=== PATIENT | female | born 1945 | race Caucasian/White ===

== ENCOUNTER 2017-10-12 07:54 | Day surgery (SDC) | payer MEDICARE, OTHER ==
[~2017-10-12 07:54] MED LIST: AMLO10 PO; AMLO5; ASPI81CH PO; ASPI81EC PO; ATOR20 PO; ATOR40TA PO; BUME2 PO; Bactrim Ds Tab1 EACH PO; CEPH500 PO; CYCL10 PO; Cetirizine HCl10 MG PO; Cleocin HCl150 MG PO; FURO40 PO; GLIP10 PO; HYDACE5325 PO; HYDCHL25 PO; IMIPENEM-CILAS500 MG IV; INSDET100 SC; INSLIS75I SQ; INSULANPEN SC; INSULANPEN SQ; INVOKANA PO; INVOKANA300 MG PO; LETR2.5 PO; LOSA50 PO; LOSARTAN POTAS100 MG PO; Lasix40 MG PO; METF500C PO; METO100ER PO; METO2.5 PO; Norco 5-325 Ta1 EACH PO; Norvasc2.5 MG PO; Novolog100 UNIT/2 SC; OXYC5 PO; Omeprazole20 M1 PO; POTCHL10ER PO; SPIR25 PO; SPIR50 PO; SULTRIDS PO; Simvastatin20 MG PO; Toprol Xl50 MG PO; VANCO 1 GR1 GM/250 M IV; VANCOMYCIN750 MG/150 IV; Vibramycin100 MG PO; Zofran Odt4 MG SL
[2018-05-18] MEDS ORDERED: KETO10 PO (19:10)
[2018-08-03] MEDS ORDERED: AMLO10 PO (09:56)
[2018-08-06] MEDS ORDERED: ACET325 PO (16:33)
[2018-08-06] MEDS ORDERED: LEVO750 PO (16:38)
== END 2017-10-12 22:45 | disposition home or self-care (01) ==
LOC: WOUND 07:54
DX: E11.621 Type 2 diabetes mellitus with foot ulcer (principal); E11.21 Type 2 diabetes mellitus with diabetic nephropathy; I11.0 Hypertensive heart disease with heart failure; I50.22 Chronic systolic (congestive) heart failure; J44.9 Chronic obstructive pulmonary disease, unspecified; I87.2 Venous insufficiency (chronic) (peripheral); M46.36 Infection of intervertebral disc (pyogenic), lumbar region; K68.12 Psoas muscle abscess; E11.65 Type 2 diabetes mellitus with hyperglycemia; L97.509 Non-pressure chronic ulcer of other part of unspecified foot with unspecified severity
CPT/HCPCS: 73630; G0463

== ENCOUNTER 2018-10-12 20:46 | Inpatient (IN) | payer MEDICARE, OTHER ==
[~2018-10-12] VITALS: Ht 167.6 cm; Wt 101.4 kg
[~2018-10-12 20:46] MED LIST changes: +ACET325 PO; +KETO10 PO; +LEVO750 PO; +METO10 PO
[2018-10-12 21:50] LABS: BASOPHILS ABSOLUTE AUTO 0.01 K/mm3 (0.00-0.23); BASOPHILS PERCENT AUTO 0 % (0-2); EOSINOPHILS ABSOLUTE AUTO 0.03 K/mm3 (0.00-0.68); EOSINOPHILS PERCENT AUTO 0 % (0-6); Hematocrit 25.2 % (33.0-51.0); Hemoglobin 8.4 g/dL (11.5-16.0); IMMATURE GRAN ABSOLUTE AUTO 0.02 K/mm3 (0.00-0.10); IMMATURE GRAN PERCENT AUTO 0 % (0-1); LYMPHOCYTES ABSOLUTE AUTO 1.26 K/mm3 (0.84-5.20); LYMPHOCYTES PERCENT AUTO 16 % (21-46); MONOCYTES ABSOLUTE AUTO 0.62 K/mm3 (0.16-1.47); MONOCYTES PERCENT AUTO 8 % (4-13); Mean Corpuscular HGB 27.9 pg (26.0-34.0); Mean Corpuscular HGB Conc 33.3 g/dL (31.5-36.5); Mean Corpuscular Volume 84 fL (80-100); Mean Platelet Volume 11.1 fL (9.1-12.4); NEUTROPHILS ABSOLUTE AUTO 6.08 K/mm3 (1.96-9.15); NEUTROPHILS PERCENT AUTO 76 % (41-73); Platelet Count 235 K/mm3 (150-400); RDW Coefficient Variation 14.5 % (11.7-14.2); RDW Standard Deviation 44.2 fL (35.1-46.3); Red Blood Cell Count 3.01 M/mm3 (3.80-5.20); White Blood Cell Count 8.02 K/mm3 (4.00-11.30)
[2018-10-12 22:10] LABS: Albumin, Blood 2.1 g/dL (3.4-5.0); Albumin/Globulin Ratio 0.5 (0.8-1.8); Bilirubin, Total 0.6 mg/dL (0.1-1.0); Bun/Creatinine Ratio 20.2 (12.0-20.0); Calcium, Blood 7.6 mg/dL (8.5-10.1); Creatinine, Blood 2.47 mg/dL (0.40-1.00); Globulin, Blood 4.6 g/dL (2.2-4.0); Potassium, Blood 3.3 mmol/L (3.5-5.5); Total Protein, Blood 6.7 g/dL (6.4-8.2)
[2018-10-13 05:12] LABS: Hematocrit 26.4 % (33.0-51.0); Hemoglobin 8.5 g/dL (11.5-16.0); Mean Corpuscular HGB 27.7 pg (26.0-34.0); Mean Corpuscular HGB Conc 32.2 g/dL (31.5-36.5); Mean Corpuscular Volume 86 fL (80-100); Mean Platelet Volume 11.6 fL (9.1-12.4); Platelet Count 199 K/mm3 (150-400); RDW Coefficient Variation 14.5 % (11.7-14.2); RDW Standard Deviation 45.6 fL (35.1-46.3); Red Blood Cell Count 3.07 M/mm3 (3.80-5.20); White Blood Cell Count 5.05 K/mm3 (4.00-11.30)
[2018-10-13 05:34] LABS: Albumin, Blood 1.9 g/dL (3.4-5.0); Albumin/Globulin Ratio 0.5 (0.8-1.8); Bilirubin, Total 0.5 mg/dL (0.1-1.0); Bun/Creatinine Ratio 20.7 (12.0-20.0); Calcium, Blood 7.2 mg/dL (8.5-10.1); Creatinine, Blood 2.46 mg/dL (0.40-1.00); Globulin, Blood 4.1 g/dL (2.2-4.0); Potassium, Blood 3.2 mmol/L (3.5-5.5)
--- NOTE | 2018-10-13 06:01 | NUR ---
SHIFT SUMMARY PT ARRIVED TO FLOOR ROUGHLY AROUND 0215. AOX4, REPORTS SHE IS FORGETFUL @TIMES BUT ANSWERS ALL QUESTIONS APPROPRIATELY. PT DENIES SOB OR N/V. REPORTS DISCOMFORT/PAIN IN R/SIDE/BACK WHEN SHE COUGHS BECAUSE SHE FELL 0N 10/11/18. LLE IS RED W/+3 PITTING EDEMA, TENDER & WARM TO TOUCH. PT ALSO REPORTS SHE HAS A BONE SPUR ON BOTTOM OF L FOOT, NO DRAINAGE IS NOTED, IT IS OPEN & ROUGHLY THE SIZE OF A NICKEL & HAS A NON-ADHERENT DRESSING APPLIED. CALL LIGHT IS IN REACH & BED IS IN LOWEST POSITION.
[2018-10-13 09:01] LABS: Source, Urine Clean Catch
[2018-10-13 09:04] LABS: Bilirubin, Urine Neg (Neg); Blood, Urine 3+ (Neg); Glucose Qualitative, Urine 3+ (Neg); Ketones, Urine 2+ (Neg); Leukocyte Esterase, Urine Neg (Neg); Nitrite, Urine Neg (Neg); Protein, Urine 4+ (Neg); Specific Gravity, Urine 1.015 (1.003-1.022); Urobilinogen, Urine NORM (Normal)
[2018-10-13 09:08] LABS: Appearance, Urine Clear (Clear); Color, Urine Yellow (P-Yellow)
[2018-10-13 09:13] LABS: Squamous Epithelial Cells Rare /hpf (Few); White Blood Cells, Urine 0-2 /hpf (0-5)
[2018-10-13 09:14] LABS: Bacteria Mod /hpf; Granular Casts Rare /lpf (0)
--- NOTE | 2018-10-13 17:02 | NUR ---
SHIFT SUMMARY PT AXO PLEASANT AND COOPERATIVE WITH CARE. PT UP WITH SBA TO BATHROOM. BP ELEVATED, MEDICATED PER EMAR. HYDRALAZINE GIVEN AT 1526, SEE MAR. PICTURES OF LEG AND WOUND ON FOOT IN CHART. MEPILEX IN PLACE ON FOOT. UA SENT TO LAB, SEE RESULTS. BED IN LOW POSITION, CALL LIGHT WITHIN REACH.
[2018-10-14 05:00] LABS: BASOPHILS ABSOLUTE AUTO 0.02 K/mm3 (0.00-0.23); BASOPHILS PERCENT AUTO 0 % (0-2); EOSINOPHILS ABSOLUTE AUTO 0.09 K/mm3 (0.00-0.68); EOSINOPHILS PERCENT AUTO 2 % (0-6); Hematocrit 25.6 % (33.0-51.0); Hemoglobin 8.4 g/dL (11.5-16.0); IMMATURE GRAN ABSOLUTE AUTO 0.03 K/mm3 (0.00-0.10); IMMATURE GRAN PERCENT AUTO 1 % (0-1); LYMPHOCYTES ABSOLUTE AUTO 1.25 K/mm3 (0.84-5.20); LYMPHOCYTES PERCENT AUTO 22 % (21-46); MONOCYTES PERCENT AUTO 11 % (4-13); Mean Corpuscular HGB 27.5 pg (26.0-34.0); Mean Corpuscular HGB Conc 32.8 g/dL (31.5-36.5); Mean Corpuscular Volume 84 fL (80-100); Mean Platelet Volume 10.8 fL (9.1-12.4); NEUTROPHILS ABSOLUTE AUTO 3.64 K/mm3 (1.96-9.15); NEUTROPHILS PERCENT AUTO 65 % (41-73); Platelet Count 229 K/mm3 (150-400); RDW Coefficient Variation 14.4 % (11.7-14.2); RDW Standard Deviation 43.8 fL (35.1-46.3); Red Blood Cell Count 3.05 M/mm3 (3.80-5.20); White Blood Cell Count 5.63 K/mm3 (4.00-11.30)
[2018-10-14 05:18] LABS: Albumin, Blood 1.9 g/dL (3.4-5.0); Anion Gap 11 mmol/L (6-16); Blood Urea Nitrogen 47 mg/dL (8-24); Bun/Creatinine Ratio 19.8 (12.0-20.0); CO2, Blood 23 mmol/L (21-32); Calcium, Blood 7.5 mg/dL (8.5-10.1); Chloride, Blood 109 mmol/L (98-108); Creatinine, Blood 2.37 mg/dL (0.40-1.00); Glomerular Filtration Rate 21 (60-); Glucose, Blood 163 mg/dL (70-99); Phosphorus, Blood 3.8 mg/dL (2.5-4.9); Potassium, Blood 3.3 mmol/L (3.5-5.5); Sodium, Blood 143 mmol/L (136-145)
--- NOTE | 2018-10-14 05:30 | NUR ---
SHIFT SUMMARY PT SLEPT WELL T/O NIGHT. AOX4. DENIES N/V, SOB OR PAIN. LLE IS RED, TENDER & WARM TO TOUCH W/+3 PITTING EDEMA, REDNESS DOES APPEAR TO HAVE RECEDED SINCE YESTERDAY & IS NO LONGER TO KNEE. CHEM BG @HS WAS 249 & PT WAS COVERED W/INSULIN PER ORDERS. THIS AM BP WAS 183/81, 10MG HYDRALAZINE WAS GIVEN PER ORDERS & BP WENT DOWN TO 162/66. PT UP INDEPENDENTLY TO RESTROOM & DENIES ANY DIZZINESS W/AMBULATION. CALL LIGHT IN REACH & I WILL CONT. TO MONITOR PT UNTIL DAY SHIFT RN ASSUMES CARE.
--- NOTE | 2018-10-14 18:22 | NUR ---
SHIFT SUMMARY PT AXO, PLEASANT AND COOPERATIVE WITH CARE THOUGH PT STATES THAT SHE "FEELS OFF/ CRUMMY" TODAY. PT DENIED PAIN, SOB AND NV. IV ACCESS LOST, POWERGLIDE INSERTED THIS AFTERNOON, PATENT AND INFUSING AT THIS TIME. VSS. CELLULITIS AREA MARKED THIS SHIFT. NO OTHER CHANGES. BED IN LOW POSIITON, CALL LIGHT WITHIN REACH. PT UP TO BATHROOM INDEPENDENTLY. PT EDUCATED ABOUT FALL RISK.
[2018-10-15 05:14] LABS: BASOPHILS ABSOLUTE AUTO 0.02 K/mm3 (0.00-0.23); BASOPHILS PERCENT AUTO 0 % (0-2); EOSINOPHILS ABSOLUTE AUTO 0.07 K/mm3 (0.00-0.68); EOSINOPHILS PERCENT AUTO 1 % (0-6); Hematocrit 26.7 % (33.0-51.0); Hemoglobin 8.8 g/dL (11.5-16.0); IMMATURE GRAN ABSOLUTE AUTO 0.05 K/mm3 (0.00-0.10); IMMATURE GRAN PERCENT AUTO 1 % (0-1); LYMPHOCYTES ABSOLUTE AUTO 1.79 K/mm3 (0.84-5.20); LYMPHOCYTES PERCENT AUTO 29 % (21-46); MONOCYTES ABSOLUTE AUTO 0.64 K/mm3 (0.16-1.47); MONOCYTES PERCENT AUTO 11 % (4-13); Mean Corpuscular HGB 27.9 pg (26.0-34.0); Mean Corpuscular Volume 85 fL (80-100); Mean Platelet Volume 10.2 fL (9.1-12.4); NEUTROPHILS ABSOLUTE AUTO 3.54 K/mm3 (1.96-9.15); NEUTROPHILS PERCENT AUTO 58 % (41-73); Platelet Count 256 K/mm3 (150-400); RDW Coefficient Variation 14.3 % (11.7-14.2); RDW Standard Deviation 43.8 fL (35.1-46.3); Red Blood Cell Count 3.15 M/mm3 (3.80-5.20); White Blood Cell Count 6.11 K/mm3 (4.00-11.30)
[2018-10-15 06:12] LABS: Anion Gap 9 mmol/L (6-16); Blood Urea Nitrogen 45 mg/dL (8-24); CO2, Blood 24 mmol/L (21-32); Calcium, Blood 7.9 mg/dL (8.5-10.1); Chloride, Blood 110 mmol/L (98-108); Glucose, Blood 151 mg/dL (70-99); Phosphorus, Blood 3.7 mg/dL (2.5-4.9); Potassium, Blood 3.6 mmol/L (3.5-5.5); Sodium, Blood 143 mmol/L (136-145)
--- NOTE | 2018-10-15 06:42 | NUR ---
SHIFT SUMMARY PT REPORTS SHE SLEPT WELL LAST NIGHT. NO ACUTE CHANGES THIS SHIFT. AOX4. DENIES N/V, SOB, OR PAIN. LLE IS RED, +3 PITTING EDEMA, TENDER & WARM TO TOUCH. PT REPORTS THE SKIN FEELS "TIGHT," AROUND ANKLE. CALL LIGHT IS IN REACH & BED IS IN LOWEST POSITION.
--- NOTE | 2018-10-15 06:47 | NUR ---
BP THIS AM AROUND 0327 BP WAS 170/69, 20MG HYDRALAZINE WAS GIVEN PER ORDERS & BP WAS RECHECKED @0520 & WAS TRENDING DOWN @ 135/59.
[2018-10-15 06:54] LABS: Bun/Creatinine Ratio 19.3 (12.0-20.0); Creatinine, Blood 2.33 mg/dL (0.40-1.00); Glomerular Filtration Rate 22 (60-)
--- NOTE | 2018-10-15 19:24 | NUR ---
SHIFT SUMMARY: NO ACUTE CHANGES TO REPORT THIS SHIFT. PT AO; CALM AND COOPERATIVE WITH CARE. MEDICATED FOR HEADACHE PAIN PER EMAR. LEFT LE CELLULITIS; EXTENT MARKED ON SKIN; REDNESS DECREASING; IV ABX Q8. TELE D/C'd THIS SHIFT. HX R MASTECTOMY; NO BPs ON R ARM. SB ASSIST TO BATHROOM. REPORT GIVEN TO ONCOMING RN.
--- NOTE | 2018-10-15 22:47 | NUR ---
10/15/18 2245 VOIDED 325 ML AND BLADDER SCAN = 000.
[2018-10-16 05:28] LABS: BASOPHILS ABSOLUTE AUTO 0.03 K/mm3 (0.00-0.23); BASOPHILS PERCENT AUTO 1 % (0-2); EOSINOPHILS ABSOLUTE AUTO 0.13 K/mm3 (0.00-0.68); EOSINOPHILS PERCENT AUTO 2 % (0-6); Hematocrit 28.1 % (33.0-51.0); IMMATURE GRAN ABSOLUTE AUTO 0.09 K/mm3 (0.00-0.10); IMMATURE GRAN PERCENT AUTO 1 % (0-1); LYMPHOCYTES ABSOLUTE AUTO 2.05 K/mm3 (0.84-5.20); LYMPHOCYTES PERCENT AUTO 31 % (21-46); MONOCYTES ABSOLUTE AUTO 0.55 K/mm3 (0.16-1.47); MONOCYTES PERCENT AUTO 8 % (4-13); Mean Corpuscular HGB 27.7 pg (26.0-34.0); Mean Corpuscular Volume 87 fL (80-100); Mean Platelet Volume 10.4 fL (9.1-12.4); NEUTROPHILS ABSOLUTE AUTO 3.74 K/mm3 (1.96-9.15); NEUTROPHILS PERCENT AUTO 57 % (41-73); Platelet Count 312 K/mm3 (150-400); RDW Coefficient Variation 14.6 % (11.7-14.2); Red Blood Cell Count 3.25 M/mm3 (3.80-5.20); White Blood Cell Count 6.59 K/mm3 (4.00-11.30)
[2018-10-16 06:03] LABS: Albumin, Blood 2.1 g/dL (3.4-5.0); Anion Gap 11 mmol/L (6-16); Blood Urea Nitrogen 41 mg/dL (8-24); CO2, Blood 22 mmol/L (21-32); Calcium, Blood 7.6 mg/dL (8.5-10.1); Chloride, Blood 110 mmol/L (98-108); Creatinine, Blood 2.41 mg/dL (0.40-1.00); Glomerular Filtration Rate 21 (60-); Glucose, Blood 163 mg/dL (70-99); Magnesium, Blood 1.7 mg/dL (1.6-2.4); Phosphorus, Blood 4.5 mg/dL (2.5-4.9); Potassium, Blood 3.7 mmol/L (3.5-5.5); Sodium, Blood 143 mmol/L (136-145)
--- NOTE | 2018-10-16 06:41 | NUR ---
10/16/18 0630 vitals and labwork stable. cheerful aND STATES LEFT LEG LOOKS AND FEELS MUCH BETTER THIS AM.
[2018-10-16] MEDS ORDERED: AMLO5 PO (11:02)
[2018-10-16] MEDS ORDERED: INSULANPEN SC (11:06)
[2018-10-16] MEDS ORDERED: LOSA25 PO (11:08)
[2018-10-16] MEDS ORDERED: DOCU100 PO (11:18)
[2018-10-16] MEDS ORDERED: CLIN300 PO (11:18)
[2018-10-16] MEDS ORDERED: Acidophilus La100 GM PO (11:20)
[2018-10-16] MEDS ORDERED: Isosorbide Mono30 MG PO (11:21)
[2018-10-16] MEDS ORDERED: ONDA4ODT MM (11:22)
[2018-10-16] MEDS ORDERED: POTA10T PO (11:23)
[2018-10-16] MEDS ORDERED: LEVO750 PO (11:23)
[2018-10-16] MEDS ORDERED: ATOR40TA PO (11:50)
--- NOTE | 2018-10-16 16:26 | NUR ---
PATIENT DISCHARGE: PATIENT DISCHARGED TO HOME THIS SHIFT. MEDICATION RECONCILIATION COMPLETED; [facility] DISCHARGE EDUCATION COMPLETED WITH PATIENT. PATIENT TRANSPORTED TO EXIT BY [facility] STAFF WITH WHEELCHAIR AT 1545. PATIENT DEPARTED [facility] VIA PRIVATE AUTO.
== END 2018-10-16 15:44 | disposition home or self-care (01) | DRG 603 ==
LOC: ER 20:46 → MEDS 10-13
PROVIDERS: Family Medicine; Physician Assistant; ADMIT Internal Medicine
DX: L03.116 Cellulitis of left lower limb (principal); N18.4 Chronic kidney disease, stage 4 (severe); N39.0 Urinary tract infection, site not specified; Z85.3 Personal history of malignant neoplasm of breast; E78.5 Hyperlipidemia, unspecified; Z87.891 Personal history of nicotine dependence; Z79.4 Long term (current) use of insulin; E11.65 Type 2 diabetes mellitus with hyperglycemia; E87.6 Hypokalemia; J44.9 Chronic obstructive pulmonary disease, unspecified; Z68.37 Body mass index [BMI] 37.0-37.9, adult; I12.9 Hypertensive chronic kidney disease with stage 1 through stage 4 chronic kidney disease, or unspecified chronic kidney disease; M14.672 Charcot's joint, left ankle and foot; B96.20 Unspecified Escherichia coli [E. coli] as the cause of diseases classified elsewhere; D63.1 Anemia in chronic kidney disease; E11.22 Type 2 diabetes mellitus with diabetic chronic kidney disease; E87.70 Fluid overload, unspecified; E88.09 Other disorders of plasma-protein metabolism, not elsewhere classified; R80.9 Proteinuria, unspecified
CPT/HCPCS: 36415; 71046; 72170; 73600; 76770; 80053; 80069; 81001; 82550; 82947; 83605; 83735; 84484; 85025; 85027; 87077; 87086; 87186; 93005; 93010; 93971; 96365; 96366; 96375; 99284-25; 99285-25; C1751; J0360; J0881; J1200; J1650; J1815; J2270; J2405; J2765; J3480; J7030; J7050; P9612

== ENCOUNTER 2019-12-17 06:43 | Inpatient (IN) | payer MEDICARE, OTHER ==
[~2019-12-17] VITALS: Ht 170.2 cm; Wt 110.5 kg
[~2019-12-17 06:43] MED LIST changes: -ASPI81CH PO; +Acidophilus La100 GM PO; +Aspir 8181 MG PO; +CLIN300 PO; +DOCU100 PO; +Isosorbide Mono30 MG PO; +ONDA4ODT MM; +POTA10T PO
[2019-12-17 08:20] LABS: BASOPHILS ABSOLUTE AUTO 0.02 K/mm3 (0.00-0.23); BASOPHILS PERCENT AUTO 0 % (0-2); EOSINOPHILS ABSOLUTE AUTO 0.16 K/mm3 (0.00-0.68); EOSINOPHILS PERCENT AUTO 2 % (0-6); Hematocrit 27.9 % (33.0-51.0); Hemoglobin 8.9 g/dL (11.5-16.0); IMMATURE GRAN ABSOLUTE AUTO 0.03 K/mm3 (0.00-0.10); IMMATURE GRAN PERCENT AUTO 0 % (0-1); LYMPHOCYTES ABSOLUTE AUTO 1.45 K/mm3 (0.84-5.20); LYMPHOCYTES PERCENT AUTO 17 % (21-46); MONOCYTES ABSOLUTE AUTO 0.54 K/mm3 (0.16-1.47); MONOCYTES PERCENT AUTO 7 % (4-13); Mean Corpuscular HGB 28.2 pg (26.0-34.0); Mean Corpuscular HGB Conc 31.9 g/dL (31.5-36.5); Mean Corpuscular Volume 88 fL (80-100); Mean Platelet Volume 11.3 fL (9.1-12.4); NEUTROPHILS ABSOLUTE AUTO 6.14 K/mm3 (1.96-9.15); NEUTROPHILS PERCENT AUTO 74 % (41-73); Platelet Count 221 K/mm3 (150-400); RDW Coefficient Variation 13.5 % (11.7-14.2); RDW Standard Deviation 43.6 fL (35.1-46.3); Red Blood Cell Count 3.16 M/mm3 (3.80-5.20); White Blood Cell Count 8.34 K/mm3 (4.00-11.30)
[2019-12-17] MEDS ORDERED: LEVEMIR FL100 UNIT/1 SC (08:40)
[2019-12-17 08:41] LABS: Albumin, Blood 2.4 g/dL (3.4-5.0); Albumin/Globulin Ratio 0.6 (0.8-1.8); Bilirubin, Total 0.2 mg/dL (0.1-1.0); Calcium, Blood 7.6 mg/dL (8.5-10.1); Creatinine, Blood 3.57 mg/dL (0.40-1.00); Potassium, Blood 4.8 mmol/L (3.5-5.5); Total Protein, Blood 6.4 g/dL (6.4-8.2); Troponin I 0.054 ng/mL (0.000-0.040)
[2019-12-17 10:05] LABS: C-Reactive Protein, High Sens. 6.11 mg/L (0.000-3.000)
[2019-12-17 10:09] LABS: International Normalized Ratio 0.95; Prothrombin Time Results 10.2 Sec (9.7-11.5)
[2019-12-17 11:38] LABS: Adenovirus Not Detected (NOT DETECT); Bordetella pertussis Not Detected (NOT DETECT); Chlamydophila pneumoniae Not Detected (NOT DETECT); Coronavirus 229E Not Detected (NOT DETECT); Coronavirus HKU1 Not Detected (NOT DETECT); Coronavirus NL63 Not Detected (NOT DETECT); Coronavirus OC43 Not Detected (NOT DETECT); Human Metapneumovirus Not Detected (NOT DETECT); Human Rhinovirus/Enterovirus Not Detected (NOT DETECT); Influenza A/2009-H1 Not Detected (NOT DETECT); Influenza A/H1 Not Detected (NOT DETECT); Influenza A/H3 Not Detected (NOT DETECT); Influenza B Not Detected (NOT DETECT); Mycoplasma pneumoniae Not Detected (NOT DETECT); Parainfluenza Virus 1 Not Detected (NOT DETECT); Parainfluenza Virus 2 Not Detected (NOT DETECT); Parainfluenza Virus 3 Not Detected (NOT DETECT); Parainfluenza Virus 4 Not Detected (NOT DETECT); Respiratory Syncytial Virus Not Detected (NOT DETECT)
[2019-12-17] MEDS ORDERED: AMLODIPINE BES2.5 MG PO (12:45)
[2019-12-17] MEDS ORDERED: ATOR40TA PO (12:47)
[2019-12-17 13:19] LABS: Source, Urine Clean Catch
[2019-12-17 13:28] LABS: Bilirubin, Urine Neg (Neg); Blood, Urine 2+ (Neg); Glucose Qualitative, Urine 4+ (Neg); Ketones, Urine Neg (Neg); Leukocyte Esterase, Urine Neg (Neg); Nitrite, Urine Neg (Neg); Protein, Urine 4+ (Neg); Specific Gravity, Urine 1.015 (1.003-1.022); Urobilinogen, Urine NORM (Normal)
[2019-12-17 13:41] LABS: Appearance, Urine Clear (Clear); Color, Urine Pale Yellow (P-Yellow)
[2019-12-17 13:44] LABS: Bacteria Mod /hpf; Squamous Epithelial Cells Few /hpf (Few); White Blood Cells, Urine 0-2 /hpf (0-5)
--- NOTE | 2019-12-17 16:36 | NUR ---
SHE HAS BEEN ADMITTED TO 328 FROM THE E.R. SHE IS A&O AND AMBULATORY IN THE ROOM WITH SBA. SHE DOES NOT USE A WALKER. TELE IS NSR. NO CP. SHE HAD 1 EPISODE OF SOB RIGHT AFTER SHE ARRIVED FROM THE E.R. AND AMBULATED TO AND FROM THE BATHROOM. SHE WAS OBVIOUSLY ANXIOUS AT THE SAME TIME. BOTH SUBSIDED WITHIN 3 MINUTES. HER THUMB SALINE LOCK DC'D. IT WAS NOT PATENT. NEW PERIPHERAL IV STARTED WITH ULTRASOUND IN THE LFA. WE ARE NOT USING HER RT ARM FOR ANY NEEDLE STICKS OR BP'S. [facility] SALAZAR HAS A LARGE RED AREA SHE SAYS SHE HAS HAD FOR YEARS. SHE SAYS SHE ALSO HAS LYMPHEDEMA IN THAT LEG. KNEE TEDS ON BILATERALLY. WILL TAKE IN SCD'S LATER. 24HR URINE STARTED AT 1315 WHEN HER UA WAS COLLECTED. 2ND TROPONIN SLIGHTLY HIGHER THAN THE FIRST. ROUNDED. RENAL US DONE. TECH DID NOT MENTION ANY URINE IN THE BLADDER. NOW SHE IS HAVING HER ECHO DONE. SHE HAS HAD NO COMPLAINTS. HER CBG WAS 370. INSULIN GIVEN. SHE SAYS SHE TAKES HER LONG ACTING INSULIN TWICE A DAY. SHE UNDERSTANDS SHE IS ON A FLUID RESTRICTION.
--- NOTE | 2019-12-17 17:51 | NUR ---
Echocardiogram performed.
--- NOTE | 2019-12-17 18:38 | NUR ---
RT ANY REMOVED PER HER REQUEST BECAUSE OF THE CHRONIC SORE ON HER RT SALAZAR. SCD'S PUT ON BILATERALLY. SHE WILL LET US KNOW IF IT IS TOO UNCOMFORTABLE.
--- NOTE | 2019-12-17 23:14 | NUR ---
TROPONIN TRENDING UP INFORMED HOSPITALIST CHIRAG W @5374, THAT PT 2000 TROP WAS ELEVATED AT 0.144 FROM 0.115 AT 1500. BP @2000 WAS 222/93 & TELE WAS NSR W/HR 102 @TIME OF ELEVATED TROPONIN DRAW. PT DENIES CHEST PAIN, NAUSEA, DYSPNEA, DOES STATE SHE OCCASIONALLY FEELS CLAMMY. BP HAS SINCE DECREASED TO 144/83 W/HR IN 80'S. NO NEW ORDERS WHERE GIVEN. WCTM. CALL LIGHT IN REACH.
[2019-12-18 05:08] LABS: Hematocrit 25.2 % (33.0-51.0); Hemoglobin 7.9 g/dL (11.5-16.0); Mean Corpuscular HGB 27.5 pg (26.0-34.0); Mean Corpuscular HGB Conc 31.3 g/dL (31.5-36.5); Mean Corpuscular Volume 88 fL (80-100); Mean Platelet Volume 11.1 fL (9.1-12.4); Platelet Count 222 K/mm3 (150-400); RDW Coefficient Variation 13.7 % (11.7-14.2); RDW Standard Deviation 44.1 fL (35.1-46.3); Red Blood Cell Count 2.87 M/mm3 (3.80-5.20); White Blood Cell Count 6.32 K/mm3 (4.00-11.30)
[2019-12-18 05:38] LABS: Albumin, Blood 2.2 g/dL (3.4-5.0); Albumin/Globulin Ratio 0.6 (0.8-1.8); Bilirubin, Total 0.3 mg/dL (0.1-1.0); Bun/Creatinine Ratio 12.2 (12.0-20.0); Calcium, Blood 7.9 mg/dL (8.5-10.1); Creatinine, Blood 3.84 mg/dL (0.40-1.00); Globulin, Blood 3.7 g/dL (2.2-4.0); Magnesium, Blood 1.6 mg/dL (1.6-2.4); Phosphorus, Blood 4.8 mg/dL (2.5-4.9); Potassium, Blood 5.1 mmol/L (3.5-5.5); Total Protein, Blood 5.9 g/dL (6.4-8.2)
--- NOTE | 2019-12-18 07:57 | NUR ---
SHIFT SUMMARY AOX4. DENIES PAIN OR N/V. REPORTS ORTHOPNEA ALONG W/ DYSPNEA W/WALKING & ACTIVITY. DENIES DIZZINESS OR CHEST PALPATATIONS. REPORTS FEELING "CLAMMY". TELE RUNNING NSR HR 78. BP @0430 WAS 209/90- GAVE 10 IV HYDRALAZINE, RECHECKED BP @ 0530 IT WAS 194/87, CALLED DR WHITE. HE ORDERED A OT DOSE OF 10 IV LABETALOL, BP TO BE RECHECKED W/MORNING VS. NO NEW TROPONIN LABS WERE DRAWN OR ORDERED THIS AM, EVEN THOUGH LAST TROPONIN DRAW @2028 WAS THE HIGHEST @0.144. PT DENIES CHEST PAIN. CBG 261 @HS. CALL LIGHT IN REACH.
[2019-12-18 14:35] LABS: Protein, Urine Quantitative 466.6 mg/dL (0.0-11.9)
--- NOTE | 2019-12-18 14:53 | NUR ---
THE PATIENT HAS HAD AN UNEVENTFUL DAY. NO COMPLAINTS OF PAIN OR DISCOMFORT. VITALS STABLE THIS MORNING. 24HR URINE COLLECTION COMPLETED AND SENT TO THE LAB. THE PATIENT IS PLEASANT AND COOPERATIVE AND ASKS FOR STAFF ASSIST NEEDED. WILL CONTINUE TO MONITOR AND PROVIDE CARE NEEDED.
[2019-12-18 15:20] LABS: BASOPHILS ABSOLUTE AUTO 0.01 K/mm3 (0.00-0.23); BASOPHILS PERCENT AUTO 0 % (0-2); EOSINOPHILS ABSOLUTE AUTO 0.08 K/mm3 (0.00-0.68); EOSINOPHILS PERCENT AUTO 1 % (0-6); Hematocrit 26.5 % (33.0-51.0); Hemoglobin 8.3 g/dL (11.5-16.0); IMMATURE GRAN ABSOLUTE AUTO 0.02 K/mm3 (0.00-0.10); IMMATURE GRAN PERCENT AUTO 0 % (0-1); LYMPHOCYTES ABSOLUTE AUTO 1.64 K/mm3 (0.84-5.20); LYMPHOCYTES PERCENT AUTO 28 % (21-46); MONOCYTES ABSOLUTE AUTO 0.52 K/mm3 (0.16-1.47); MONOCYTES PERCENT AUTO 9 % (4-13); Mean Corpuscular HGB 27.3 pg (26.0-34.0); Mean Corpuscular HGB Conc 31.3 g/dL (31.5-36.5); Mean Corpuscular Volume 87 fL (80-100); Mean Platelet Volume 10.8 fL (9.1-12.4); NEUTROPHILS ABSOLUTE AUTO 3.52 K/mm3 (1.96-9.15); NEUTROPHILS PERCENT AUTO 61 % (41-73); Platelet Count 232 K/mm3 (150-400); RDW Coefficient Variation 13.7 % (11.7-14.2); RDW Standard Deviation 43.4 fL (35.1-46.3); Red Blood Cell Count 3.04 M/mm3 (3.80-5.20); White Blood Cell Count 5.79 K/mm3 (4.00-11.30)
--- NOTE | 2019-12-18 15:54 | NUR ---
DR COUGHLIN NOTIFIED OF PATIENTS BP OF 251/100. ORDERS GIVEN TO ADMINISTER 20MG IV HYDRALAZINE NOW. MEDICATION ADMINISTERED ORDERED. WILL RECHECK BP AND REPORT BACK TO .
--- NOTE | 2019-12-19 04:19 | NUR ---
SUMMARY NO ISSUES NOTED. PT HAS SLEPT OFF AND ON. PT CURRENTLY AWAKE AND HAVING AM LABS DRAWN. CALL LIGHT IN REACH. TM
[2019-12-19 04:42] LABS: BASOPHILS ABSOLUTE AUTO 0.03 K/mm3 (0.00-0.23); BASOPHILS PERCENT AUTO 0 % (0-2); EOSINOPHILS ABSOLUTE AUTO 0.13 K/mm3 (0.00-0.68); EOSINOPHILS PERCENT AUTO 2 % (0-6); Hematocrit 27.7 % (33.0-51.0); Hemoglobin 8.9 g/dL (11.5-16.0); IMMATURE GRAN ABSOLUTE AUTO 0.02 K/mm3 (0.00-0.10); IMMATURE GRAN PERCENT AUTO 0 % (0-1); LYMPHOCYTES ABSOLUTE AUTO 1.53 K/mm3 (0.84-5.20); LYMPHOCYTES PERCENT AUTO 23 % (21-46); MONOCYTES ABSOLUTE AUTO 0.53 K/mm3 (0.16-1.47); MONOCYTES PERCENT AUTO 8 % (4-13); Mean Corpuscular HGB 27.6 pg (26.0-34.0); Mean Corpuscular HGB Conc 32.1 g/dL (31.5-36.5); Mean Corpuscular Volume 86 fL (80-100); Mean Platelet Volume 10.7 fL (9.1-12.4); NEUTROPHILS ABSOLUTE AUTO 4.46 K/mm3 (1.96-9.15); NEUTROPHILS PERCENT AUTO 67 % (41-73); Platelet Count 221 K/mm3 (150-400); RDW Coefficient Variation 14.2 % (11.7-14.2); RDW Standard Deviation 44.9 fL (35.1-46.3); Red Blood Cell Count 3.22 M/mm3 (3.80-5.20)
[2019-12-19 05:01] LABS: Albumin, Blood 2.4 g/dL (3.4-5.0); Anion Gap 9 mmol/L (6-16); Blood Urea Nitrogen 50 mg/dL (8-24); Bun/Creatinine Ratio 10.7 (12.0-20.0); CO2, Blood 22 mmol/L (21-32); Calcium, Blood 7.8 mg/dL (8.5-10.1); Chloride, Blood 109 mmol/L (98-108); Creatinine, Blood 4.67 mg/dL (0.40-1.00); Glomerular Filtration Rate 10 (60-); Glucose, Blood 298 mg/dL (70-99); Magnesium, Blood 1.6 mg/dL (1.6-2.4); Phosphorus, Blood 5.5 mg/dL (2.5-4.9); Potassium, Blood 4.6 mmol/L (3.5-5.5); Sodium, Blood 140 mmol/L (136-145)
--- NOTE | 2019-12-19 08:07 | NUR ---
A+O, calllight in reach, saline locked/flushed, took medications as prescribed, discussed diabetes as well as all medications and fluid restrictions, bed low, rm air, denies pain, strong pulse, profusion, movement in all extremities, porter luggage even, perrl, abdmn soft nontender, bt+4q, ls dim in base, hrr, denies pain, discussed edema, will continue to nonitor and treat
--- NOTE | 2019-12-19 18:13 | NUR ---
Initial spiritual care note: Karina is active in her Denominational practice and finds strength and peace from it. She lives with her dtr and grandkids. She feels well-supported and cared-for. No fears or worries. She has a mercedes, hopeful demeanor and was appreciative of spiritual affirmation. She tells me she has heath in Dr. William to provide healing to her kidneys. I will remain available.
[2019-12-19 18:19] LABS: Albumin, Blood 2.6 g/dL (3.4-5.0); Anion Gap 8 mmol/L (6-16); Blood Urea Nitrogen 54 mg/dL (8-24); Bun/Creatinine Ratio 11.3 (12.0-20.0); CO2, Blood 22 mmol/L (21-32); Calcium, Blood 8.1 mg/dL (8.5-10.1); Chloride, Blood 109 mmol/L (98-108); Creatinine, Blood 4.77 mg/dL (0.40-1.00); Glomerular Filtration Rate 10 (60-); Glucose, Blood 216 mg/dL (70-99); Phosphorus, Blood 5.5 mg/dL (2.5-4.9); Potassium, Blood 4.5 mmol/L (3.5-5.5); Sodium, Blood 139 mmol/L (136-145)
--- NOTE | 2019-12-20 03:56 | NUR ---
SUMMARY PT HAD SOME CX DISCOMFORT THAT SHE DESCRIBED "DEEP ITCHING" IN HER CX. ECG WAS PERFORMED AND DR HAYES NOTIFIED. PROVIDER STATED HE WAS NOT CONCERNED AND TO CONTINUE TO MONITOR. PT STATES SHE HAS SOME ANXIETY AND TAKES A XANAX THAT HELPS. DR KRISHNA CALLED AND XANAX WAS ORDERED. PT HAS REPORTED NOT HAVING SX'S ANY LONGER. PT STATES SHE HAS BEEN ANXIOUS ABOUT POSSIBLY STARTING DIALYSIS. PT CURRENTLY SLEEPING AND BREATHING EASY. CALL LIGHT IN REACH. [facility].
[2019-12-20 04:59] LABS: BASOPHILS ABSOLUTE AUTO 0.02 K/mm3 (0.00-0.23); BASOPHILS PERCENT AUTO 0 % (0-2); EOSINOPHILS ABSOLUTE AUTO 0.17 K/mm3 (0.00-0.68); EOSINOPHILS PERCENT AUTO 3 % (0-6); Hematocrit 26.5 % (33.0-51.0); Hemoglobin 8.4 g/dL (11.5-16.0); IMMATURE GRAN ABSOLUTE AUTO 0.03 K/mm3 (0.00-0.10); IMMATURE GRAN PERCENT AUTO 1 % (0-1); LYMPHOCYTES ABSOLUTE AUTO 1.98 K/mm3 (0.84-5.20); LYMPHOCYTES PERCENT AUTO 32 % (21-46); MONOCYTES ABSOLUTE AUTO 0.56 K/mm3 (0.16-1.47); MONOCYTES PERCENT AUTO 9 % (4-13); Mean Corpuscular HGB 27.5 pg (26.0-34.0); Mean Corpuscular HGB Conc 31.7 g/dL (31.5-36.5); Mean Corpuscular Volume 87 fL (80-100); Mean Platelet Volume 10.9 fL (9.1-12.4); NEUTROPHILS ABSOLUTE AUTO 3.49 K/mm3 (1.96-9.15); NEUTROPHILS PERCENT AUTO 56 % (41-73); Platelet Count 212 K/mm3 (150-400); RDW Coefficient Variation 14.1 % (11.7-14.2); RDW Standard Deviation 44.7 fL (35.1-46.3); Red Blood Cell Count 3.05 M/mm3 (3.80-5.20); White Blood Cell Count 6.25 K/mm3 (4.00-11.30)
[2019-12-20 05:31] LABS: Albumin, Blood 2.3 g/dL (3.4-5.0); Anion Gap 9 mmol/L (6-16); Blood Urea Nitrogen 55 mg/dL (8-24); Bun/Creatinine Ratio 11.1 (12.0-20.0); CO2, Blood 22 mmol/L (21-32); Calcium, Blood 7.8 mg/dL (8.5-10.1); Chloride, Blood 110 mmol/L (98-108); Creatinine, Blood 4.96 mg/dL (0.40-1.00); Glomerular Filtration Rate 9 (60-); Glucose, Blood 149 mg/dL (70-99); Magnesium, Blood 1.7 mg/dL (1.6-2.4); Phosphorus, Blood 5.7 mg/dL (2.5-4.9); Potassium, Blood 4.4 mmol/L (3.5-5.5); Sodium, Blood 141 mmol/L (136-145)
--- NOTE | 2019-12-20 08:08 | NUR ---
REPORT RECEIVED FROM NOC SHIFT, A+O, call light in reach, bed low, npo, took medication as prescribed held lantus because NPO, will recheck cbg mid shift as well as check in frequently to see if low cbg, ready for procedures, close monitoring of i/o, only one leg SKDS due to pt request
[2019-12-20 12:07] LABS: M-SPIKE, % Not Observed % (Not Observed); PROTEIN,TOTAL,URINE 523.5 mg/dL (Not Estab.)
--- NOTE | 2019-12-20 16:04 | NUR ---
NO [address] LEAD MONITOR NEEDED PER DR GRIMES
--- NOTE | 2019-12-20 19:17 | NUR ---
noc shift report given, will give her med for high bp, call light in reach, bed in low position, sba to bathroom, bed in low position, cath site looking good (CDI), sleepy, ate a snack states she is feeling great and looking forward to dialysis tomorrow
--- NOTE | 2019-12-21 04:17 | NUR ---
SHIFT SUMMARY ASSUMED CARE OF PT AT 1900. PT IS A/O X4, STATES SHE HAS N/T IN HER EXTREMITIES DUE TO CHEMOTHERAPY. HEART SOUNDS REGULAR, LUNG SOUNDS CLEAR BUT DIMINISHED AT THE BASES, DENIES SOB/CP AT THIS TIME. PT USES THE RESTROOM INDEPENDENTLY. SWELLING OF HER BLE +3, PT STATES THAT THE SWELLING HAS GOTTEN BETTER. PT STATES THAT SHE FEELS GREAT AND IS READY FOR DIALYSIS TOMORROW. PT BP WAS IN THE 200 SYSTOLIC, DAYSHIFT NURSE ADMINISTERED PRN MEDICATIONS, BP DECREASED TO 150S SYTOLIC. NO ACUTE EVENTS OVER NIGHT. PT SLEPT MOST OF THE NIGHT. CALL LIGHT IN REACH, BED IN LOWEST POSTION, WILL CONTINUE TO MONITOR UNTIL DAYSHIFT NURSE ARRIVES.
[2019-12-21 04:45] LABS: Hematocrit 28.6 % (33.0-51.0); Hemoglobin 9.1 g/dL (11.5-16.0)
[2019-12-21 05:15] LABS: Albumin, Blood 2.4 g/dL (3.4-5.0); Anion Gap 10 mmol/L (6-16); Blood Urea Nitrogen 57 mg/dL (8-24); Bun/Creatinine Ratio 11.5 (12.0-20.0); CO2, Blood 22 mmol/L (21-32); Chloride, Blood 110 mmol/L (98-108); Creatinine, Blood 4.94 mg/dL (0.40-1.00); Glomerular Filtration Rate 9 (60-); Glucose, Blood 164 mg/dL (70-99); Magnesium, Blood 1.8 mg/dL (1.6-2.4); Phosphorus, Blood 5.7 mg/dL (2.5-4.9); Potassium, Blood 4.4 mmol/L (3.5-5.5); Sodium, Blood 142 mmol/L (136-145)
--- NOTE | 2019-12-21 16:55 | NUR ---
SHIFT SUMMARY PT AXO, PLEASANT AND COOPERATIVE WITH CARE. PT HAD DIALYSIS THIS SHIFT. HTN NOTED WITH AM VS, 182/75, MEDICATED PER EMAR WITH MORNING MEDS. BP IMPROVED SINCE DIALYSIS. VSS WNL AT THIS TIME. UP WITH SBA TO BATHROOM. PT HAS HAD 720 ML IN SO FAR. FLUID RESTRICTION ADDED TO DIET ORDER. IV PATENT AND SALINE LOCKED. PERMICATH SITE WNL. BED IN LOW POSITION, CALL LIGHT WITHIN REACH.
--- NOTE | 2019-12-22 03:20 | NUR ---
SHIFT SUMMARY ASSUMED CARE OF PT AT 1900. PT IS A/OX4, STATES SHE HUTCHINS N/T IN HER EXTREMITIES DUE TO CHEMO THREAMENTS. HEART SOUNDS REGULAR, TELE SHOWS SINUS @ 76, DENIES CP AT THIS TIME. LUNG SOUNDS DIMINISHED AT THE BASES, DENIES SOB AT THIS TIME, PT STATES THAT THIS ISSUE IS RESOLVED TO HER. DIALYSIS PORT IS C/D/I WITH NEW DRESSING, NO S/SX OF INFECTION. PT STATES THAT HER SWELLING IN HER EXTRMITIES IS GETTING BETTER. PT IS INDEPENDENT IN HER ROOM TO THE BATHROOM WITH FWW. AT AROUND 0315 PT STATED THAT SHE FELT LIKE SHE WAS GETTING A UTI, SHE STATES THAT IT CORREA IN HER URETHRA AND FEELS IF SHE HAS TO PEE MORE. THIS MADE THE PT TEARFUL BECAUSE SHE WAS HIPEING SHE WAS GETTING BETTER AND SHE COULD GO HOME SOON. AWAITING SAMPLE FROM PT. PT ALSO C/O HEADACHE, MEDICATED PER EMAR. PT SLEPT MOST OF THE NIGHT EXCEPT FOR SAID EVENT. CALL LIGHT IN REACH, BED IN LOWEST POSTION, WILL CONTINUE TO MONITOR UNTIL DAYSHIFT NURSE ARRIVES.
[2019-12-22 04:56] LABS: Hematocrit 28.3 % (33.0-51.0); Hemoglobin 8.9 g/dL (11.5-16.0)
[2019-12-22 05:20] LABS: Albumin, Blood 2.5 g/dL (3.4-5.0); Anion Gap 9 mmol/L (6-16); Blood Urea Nitrogen 46 mg/dL (8-24); Bun/Creatinine Ratio 10.2 (12.0-20.0); CO2, Blood 25 mmol/L (21-32); Calcium, Blood 7.6 mg/dL (8.5-10.1); Chloride, Blood 105 mmol/L (98-108); Glomerular Filtration Rate 10 (60-); Glucose, Blood 299 mg/dL (70-99); Magnesium, Blood 1.8 mg/dL (1.6-2.4); Phosphorus, Blood 4.6 mg/dL (2.5-4.9); Potassium, Blood 4.3 mmol/L (3.5-5.5); Sodium, Blood 139 mmol/L (136-145)
[2019-12-22 06:07] LABS: HBSAG SCREEN Negative (Negative); HEP A AB, IGM Negative (Negative); HEP B CORE AB, IGM Negative (Negative); HEP C VIRUS AB 0.1 (0.0-0.9)
--- NOTE | 2019-12-22 16:52 | NUR ---
SHIFT SUMMARY PT AXO, PLEASANT AND COOPERATIVE WITH CARE. PT HAD DIALYSIS THIS SHIFT. PT DENIED DYSURIA THIS SHIFT. PT EDUCATED ABOUT NEEDED TO COLLECT URINE SAMPLE, PT AGREES AND AWAITING COLLECTION AT THIS TIME. PT COMPLAINED OF ITCHING DURING DIALYSIS, NEW ORDER INITIATED THEN WHEN NURSE WENT TO MEDICATE PATIENT, THE ITCHING WAS GONE. HTN NOTED THIS SHIFT. MEDICATED PER EMAR FOR HTN AT 1600, BISQUE WARE DIPPER REEVALUATING BP AT THIS TIME. SWELLING IN LEGS IMPROVING. PT MEDICATED FOR H/A PER EMAR. NO OTHER CHANGES THIS SHIFT. BED IN LOW POSITION, CALL LIGHT WITHIN REACH.
[2019-12-22 21:59] LABS: Source, Urine Clean Catch
[2019-12-22 22:02] LABS: Bilirubin, Urine Neg (Neg); Blood, Urine 1+ (Neg); Glucose Qualitative, Urine 3+ (Neg); Ketones, Urine 1+ (Neg); Leukocyte Esterase, Urine Neg (Neg); Nitrite, Urine Neg (Neg); Protein, Urine 4+ (Neg); Urobilinogen, Urine NORM (Normal)
[2019-12-22 22:03] LABS: Appearance, Urine Clear (Clear); Color, Urine Yellow (P-Yellow)
[2019-12-22 22:08] LABS: Bacteria Many /hpf; Hyaline Casts 0-2 /lpf (0-2); Red Blood Cells, Urine 0-2 /hpf (0-2); Squamous Epithelial Cells Few /hpf (Few)
--- NOTE | 2019-12-23 04:24 | NUR ---
SHIFT SUMMARY PT IS A/O X4. REPOSITIONS SELF IN BED AND HAS BEEN ASSISTED PRN. PT IS IND. IN ROOM WITH OCCASIONAL STANDBY ASSIST PRN. PT TOLERATING PO INTAKE AND COMPLIANT WITH FLUID RESTRICTIONS. NO ACUTE CHANGES OVERNIGHT. ASSISTED WITH ADL'S PRN.
[2019-12-23 05:15] LABS: Hematocrit 29.2 % (33.0-51.0); Hemoglobin 9.1 g/dL (11.5-16.0)
[2019-12-23 05:34] LABS: Albumin, Blood 2.6 g/dL (3.4-5.0); Anion Gap 8 mmol/L (6-16); Blood Urea Nitrogen 30 mg/dL (8-24); Bun/Creatinine Ratio 8.1 (12.0-20.0); CO2, Blood 28 mmol/L (21-32); Calcium, Blood 8.3 mg/dL (8.5-10.1); Chloride, Blood 104 mmol/L (98-108); Creatinine, Blood 3.72 mg/dL (0.40-1.00); Glomerular Filtration Rate 13 (60-); Glucose, Blood 166 mg/dL (70-99); Magnesium, Blood 1.9 mg/dL (1.6-2.4); Potassium, Blood 3.6 mmol/L (3.5-5.5); Sodium, Blood 140 mmol/L (136-145)
--- NOTE | 2019-12-23 05:47 | NUR ---
DR. HOLLY HERE TO SEE PT. REPORTS PT WILL HAVE DILAYSIS TODAY.
[2019-12-23 08:07] LABS: ANTIGLOMERULAR BM AB 2 units (0-20)
[2019-12-23 15:08] LABS: A/G RATIO 0.9 (0.7-1.7); ALBUMIN 2.4 g/dL (2.9-4.4); ALPHA-1-GLOBULIN 0.3 g/dL (0.0-0.4); ALPHA-2-GLOBULIN 0.9 g/dL (0.4-1.0); BETA GLOBULIN 0.8 g/dL (0.7-1.3); GAMMA GLOBULIN 0.8 g/dL (0.4-1.8); GLOBULIN, TOTAL 2.8 g/dL (2.2-3.9); IMMUNOGLOBULIN A, QN, SERUM 279 mg/dL (64-422); IMMUNOGLOBULIN G, QN, SERUM 709 mg/dL (586-1602); IMMUNOGLOBULIN M, QN, SERUM 119 mg/dL (26-217); M-SPIKE Not Observed g/dL (Not Observed); PROTEIN, TOTAL, SERUM 5.2 g/dL (6.0-8.5)
--- NOTE | 2019-12-23 18:25 | NUR ---
DISCHARGE SUMMARY PT DISCHARGED TO HOME. PT LEFT HOME PRIOR TO THIS NOTE. IV DC'D BELONGINGS RETURNED. PT HAD DIALYSIS THIS SHIFT. COMPLAINED THIS MORNING ABOUT "FEELING CRUMMY" BUT COULDNT ELABORATE ON EXACTLY HOW SHE WAS FEELING.EAGER TO BE DISCHARGED HOME. PT LEFT ROOM WITH VACCINATOR ESCORT PRIOR TO THIS NOTE. PT AGREES TOFOLLOW UP WITH DR. HOLLY AND [facility] BUT STATES THAT SHE WILL NOT FOLLOW UP WITH PCP AT THIS TIME BECAUSE OF THE COVID PANDEMIC. ALL DISCHARGE INSTRUCTIONS DISCUSSED, ALL QUESTIONS ANSWERED.
[2019-12-24 13:09] LABS: ANA DIRECT Negative (Negative); ANTIMYELOPEROXIDASE (MPO) ABS <9.0 U/mL (0.0-9.0); ANTIPROTEINASE 3 (PR-3) ABS <3.5 U/mL (0.0-3.5); ATYPICAL PANCA <1:20 titer (Neg:<1:20); CYTOPLASMIC (C-ANCA) <1:20 titer (Neg:<1:20); PERINUCLEAR (P-ANCA) <1:20 titer (Neg:<1:20)
== END 2019-12-23 18:10 | disposition home or self-care (01) | DRG 673 ==
LOC: ER 06:43 → MEDS 06:54 → ER 06:54 → MEDS 06:54
PROVIDERS: Emergency Medicine; Family Medicine; Internal Medicine Nephrology; Nurse Practitioner Acute Care; ADMIT Family Medicine
PROC: 02HV33Z Insertion of Infusion Device into Superior Vena Cava, Percutaneous Approach (ICD-10-PCS; principal; 2019-12-19)
PROC: 0JH63XZ Insertion of Tunneled Vascular Access Device into Chest Subcutaneous Tissue and Fascia, Percutaneous Approach (ICD-10-PCS; 2019-12-20)
PROC: B518ZZA Fluoroscopy of Superior Vena Cava, Guidance (ICD-10-PCS; 2019-12-20)
PROC: 5A1D70Z Performance of Urinary Filtration, Intermittent, Less than 6 Hours Per Day (ICD-10-PCS; 2019-12-20)
DX: N17.9 Acute kidney failure, unspecified (principal); J18.9 Pneumonia, unspecified organism; I13.0 Hypertensive heart and chronic kidney disease with heart failure and stage 1 through stage 4 chronic kidney disease, or unspecified chronic kidney disease; J44.0 Chronic obstructive pulmonary disease with (acute) lower respiratory infection; I50.32 Chronic diastolic (congestive) heart failure; E11.22 Type 2 diabetes mellitus with diabetic chronic kidney disease; N18.4 Chronic kidney disease, stage 4 (severe); Z99.2 Dependence on renal dialysis; Z79.4 Long term (current) use of insulin; E66.01 Morbid (severe) obesity due to excess calories; D63.1 Anemia in chronic kidney disease; K21.9 Gastro-esophageal reflux disease without esophagitis; N25.81 Secondary hyperparathyroidism of renal origin; N17.0 Acute kidney failure with tubular necrosis; Z85.3 Personal history of malignant neoplasm of breast; Z87.891 Personal history of nicotine dependence; Z66 Do not resuscitate; R21 Rash and other nonspecific skin eruption; E11.65 Type 2 diabetes mellitus with hyperglycemia; E83.39 Other disorders of phosphorus metabolism; Z68.37 Body mass index [BMI] 37.0-37.9, adult
CPT/HCPCS: 0099U; 36415; 36430; 71045; 76770; 77001; 80053; 80069; 80074; 81001; 81050; 82728; 82784; 82947; 83516; 83520; 83605; 83615; 83735; 83880; 84100; 84145; 84156; 84165; 84166; 84484; 85014; 85018; 85025; 85027; 85610; 85730; 86038; 86141; 86256; 86317; 86334; 86335; 86850; 86900; 86901; 86923; 87040; 87086; 93005; 93010; 93306; 93356; 96365; 96366; 96372; 96375; 96376; 99285-25; A9270; A9270-GY; C1750; G0378; J0360; J0881; J1644; J1815; J1940; J1956; J2250; J2704; J3010; J7030; J7050; P9016; U0002

== ENCOUNTER 2020-01-23 12:35 | Day surgery (SDC) | payer MEDICARE, OTHER ==
[~2020-01-23] VITALS: Ht 170.2 cm; Wt 101.4 kg
[~2020-01-23 12:35] MED LIST changes: +AMLODIPINE BES2.5 MG PO; +LEVEMIR FL100 UNIT/1 SC
--- NOTE | 2020-01-23 15:39 | NUR ---
PT BACK TO RECOVERY ROOM POST PROCEDURE. AWAKE, ALERT, AND DENIES ANY PAIN OR DISCOMFORT. VSS. PERM CATH IN PLACE IN RIGHT CHEST WALL. JUGULAR SITE WITH CLOTH DOT DRESSING IN PLACE. SLIGHT SWELLING, PT DENIES ANY PAIN OR TENDERNESS IN THE AREA.
--- NOTE | 2020-01-23 16:40 | NUR ---
IV DC'D, CATH INTACT. PT VERBALIZED UNDERSTANDING OF DISCHARGE INSTRUCTIONS AND FOLLOW UP INFO. RIGHT JUGULAR AND CHEST PERM CATH SITES CLEAN AND DRY. NO BLEEDING, BRUISING, OR TENDERNESS TO THE AREA. PT OUT TO CAR VIA WHEELCHAIR, GRANDSON TO GIVE PT A RIDE HOME.
== END 2020-01-23 23:49 | disposition home or self-care (01) ==
LOC: MHTC 12:35
DX: Z45.2 Encounter for adjustment and management of vascular access device (principal); E11.22 Type 2 diabetes mellitus with diabetic chronic kidney disease; I12.0 Hypertensive chronic kidney disease with stage 5 chronic kidney disease or end stage renal disease; N18.6 End stage renal disease; E66.9 Obesity, unspecified; J44.9 Chronic obstructive pulmonary disease, unspecified; Z87.891 Personal history of nicotine dependence; Z88.0 Allergy status to penicillin; Z88.2 Allergy status to sulfonamides; Z88.8 Allergy status to other drugs, medicaments and biological substances; Z91.041 Radiographic dye allergy status; Z79.82 Long term (current) use of aspirin; Z79.4 Long term (current) use of insulin; Z79.899 Other long term (current) drug therapy
CPT/HCPCS: 36558; 36589; 76937; 99152; 99153; C1750; C1769; C1894; J1644; J2250; J3010; J7040

== ENCOUNTER → 2020-02-23 | Outpatient (CLI) | payer MEDICARE, OTHER ==
[2020-02-24 10:07] LABS: ABBOTT SARS COV-2 IGG AB Negative (Negative)
[2020-02-24 13:08] LABS: SARS COV-2 IGM AB Negative (Negative)
== END | disposition home or self-care (01) ==
LOC: LAB 09:30 → LAB SHORT 09:30
PROVIDERS: Nurse Practitioner Family
DX: Z01.84 Encounter for antibody response examination (principal)
CPT/HCPCS: 86769

== ENCOUNTER 2020-04-23 10:10 | Observation (INO) | payer MEDICARE, OTHER ==
[~2020-04-23] VITALS: Ht 170.2 cm; Wt 102.7 kg
[~2020-04-23 10:10] MED LIST changes: -LEVEMIR FL100 UNIT/1 SC; +LEVEMIR FL100 UNIT/2 SC
[2020-04-23] MEDS ORDERED: CLON.1 PO (10:28)
[2020-04-23 10:41] LABS: BASOPHILS ABSOLUTE AUTO 0.02 K/mm3 (0.00-0.23); BASOPHILS PERCENT AUTO 0 % (0-2); EOSINOPHILS ABSOLUTE AUTO 0.07 K/mm3 (0.00-0.68); EOSINOPHILS PERCENT AUTO 1 % (0-6); Hematocrit 35.6 % (33.0-51.0); Hemoglobin 11.5 g/dL (11.5-16.0); IMMATURE GRAN ABSOLUTE AUTO 0.01 K/mm3 (0.00-0.10); IMMATURE GRAN PERCENT AUTO 0 % (0-1); LYMPHOCYTES ABSOLUTE AUTO 1.41 K/mm3 (0.84-5.20); LYMPHOCYTES PERCENT AUTO 23 % (21-46); MONOCYTES ABSOLUTE AUTO 0.51 K/mm3 (0.16-1.47); MONOCYTES PERCENT AUTO 8 % (4-13); Mean Corpuscular HGB 30.3 pg (26.0-34.0); Mean Corpuscular HGB Conc 32.3 g/dL (31.5-36.5); Mean Corpuscular Volume 94 fL (80-100); Mean Platelet Volume 10.8 fL (9.1-12.4); NEUTROPHILS ABSOLUTE AUTO 4.15 K/mm3 (1.96-9.15); NEUTROPHILS PERCENT AUTO 67 % (41-73); Platelet Count 238 K/mm3 (150-400); RDW Coefficient Variation 13.7 % (11.7-14.2); RDW Standard Deviation 47.1 fL (35.1-46.3); White Blood Cell Count 6.17 K/mm3 (4.00-11.30)
[2020-04-23 11:01] LABS: Albumin, Blood 3.1 g/dL (3.4-5.0); Albumin/Globulin Ratio 0.8 (0.8-1.8); Bilirubin, Total 0.5 mg/dL (0.1-1.0); Bun/Creatinine Ratio 14.3 (12.0-20.0); Calcium, Blood 8.3 mg/dL (8.5-10.1); Creatinine, Blood 3.92 mg/dL (0.40-1.00); Globulin, Blood 3.9 g/dL (2.2-4.0)
[2020-04-23] MEDS ORDERED: NOVOLOG100 UNIT/2 SC (13:15)
[2020-04-23] MEDS ORDERED: CALCIUM ACETAT667 M2 PO (13:15)
[2020-04-23] MEDS ORDERED: LOSA50 PO (13:15)
[2020-04-23] MEDS ORDERED: Bumetanide2 MG PO (13:15)
[2020-04-23] MEDS ORDERED: METO50ER PO (13:15)
[2020-04-23] MEDS ORDERED: OMEP20ER PO (16:44)
--- NOTE | 2020-04-23 16:45 | NUR ---
PT ARRIVED TO ROOM [facility]. AWAKE AND ALERT ON ARRIVAL AND ABLE TO ANSWER QUESTIONS APPROPRIATELY. SETTLED IN TO BED AND ORIENTED TO ROOM
--- NOTE | 2020-04-23 19:59 | NUR ---
SHIFT SUMMARY HAS BEEN TO BATHROOM INDEPENDENTLY USING FWW. HAS HAD NO PROBLEM WITH PERMCATH SINCE ARRIVAL TO FLOOR. FAINT BRUIT FELT TO R AC FISTULA. WILL REPORT CONDITION TO ONCOMING SHIFT.
--- NOTE | 2020-04-23 23:50 | NUR ---
04/23/20 2220 VOIDED 220 ML. BLADDER SCAN = 0 ml.
--- NOTE | 2020-04-23 23:55 | NUR ---
04/23/20 5822 pt stated she had diarrhea but flushed it. RN informed hospitalist automotive salesperson. Informed pt that need a specimen next time before getting any meds.
[2020-04-24 04:30] LABS: Adenovirus F 40/41 Not Detected (NOT DETECT); Astrovirus Not Detected (NOT DETECT); Campylobacter Sp Not Detected (NOT DETECT); Cryptosporidium Not Detected (NOT DETECT); Cyclospora Cayetanensis Not Detected (NOT DETECT); E. Coli O157 Not Detected (NOT DETECT); Entamoeba Histolytica Not Detected (NOT DETECT); Enteroaggregative E. coli-EAEC Not Detected (NOT DETECT); Enteropathogenic E. coli-EPEC Not Detected (NOT DETECT); Enterotoxigenic E. coli-ETEC Not Detected (NOT DETECT); Giardia Lamblia Not Detected (NOT DETECT); Norovirus GI/GII Not Detected (NOT DETECT); Plesiomonas Shigelloides Not Detected (NOT DETECT); Rotavirus A Not Detected (NOT DETECT); Salmonella Sp Not Detected (NOT DETECT); Sapovirus Not Detected (NOT DETECT); Shiga Toxin-prod E. coli-STEC Not Detected (NOT DETECT); Shigella/Enteroin E. coli-EIEC Not Detected (NOT DETECT); Vibrio Cholerae Not Detected (NOT DETECT); Vibrio Sp Not Detected (NOT DETECT); Yersinia Enterocolitica Not Detected (NOT DETECT)
[2020-04-24 04:41] LABS: Hemoglobin 10.9 g/dL (11.5-16.0)
[2020-04-24 05:04] LABS: Anion Gap 8 mmol/L (6-16); Blood Urea Nitrogen 63 mg/dL (8-24); Bun/Creatinine Ratio 14.4 (12.0-20.0); CO2, Blood 27 mmol/L (21-32); Calcium, Blood 8.2 mg/dL (8.5-10.1); Chloride, Blood 105 mmol/L (98-108); Creatinine, Blood 4.38 mg/dL (0.40-1.00); Glomerular Filtration Rate 11 (60-); Glucose, Blood 335 mg/dL (70-99); Magnesium, Blood 1.9 mg/dL (1.6-2.4); Potassium, Blood 3.9 mmol/L (3.5-5.5); Sodium, Blood 140 mmol/L (136-145)
--- NOTE | 2020-04-24 07:27 | NUR ---
04/24/20 0630 AWAKE AND CHEERFUL THIS AM. STATES SHE SLEPT ON AND OFF LAST NIGHT. HAS CHRONIC DIARREA AND STOOL SENT TO LAB. DENIES ANY DISCOMFORT. NEW DIALYSIS PORT TO UPPER RT CHEST REMAINS DRY AND INTACT. VITALS STABLE.
--- NOTE | 2020-04-24 11:53 | NUR ---
SUMMARY/DISCHARGE PT DISCHARGED TO HOME, PT VERBALIZED UNDERSTANDING OF DISCHARGE INSTRUCTIONS, PT DECLINED TO HAVE A FOLLOW UP MADE FOR HER, STATING SHE ALREADY HAS ONE, PT ALSO REPORTS SHE WILL HAVE DIALYSIS AGAIN TOMORROW, PT HAD DIALYSIS THIS MORNING, [facility], PT TAKEN OUT SAFELY VIA WHEELCHAIR
== END 2020-04-24 11:52 | disposition home or self-care (01) ==
LOC: ER 10:10 → MEDS 10:11
PROVIDERS: Internal Medicine; Internal Medicine Nephrology; Physician Assistant; ADMIT Internal Medicine
DX: T82.828A Fibrosis due to vascular prosthetic devices, implants and grafts, initial encounter (principal); Y83.2 Surgical operation with anastomosis, bypass or graft as the cause of abnormal reaction of the patient, or of later complication, without mention of misadventure at the time of the procedure; E11.22 Type 2 diabetes mellitus with diabetic chronic kidney disease; I12.0 Hypertensive chronic kidney disease with stage 5 chronic kidney disease or end stage renal disease; N18.6 End stage renal disease; J44.9 Chronic obstructive pulmonary disease, unspecified; E66.01 Morbid (severe) obesity due to excess calories; D63.1 Anemia in chronic kidney disease; Z88.0 Allergy status to penicillin; Z88.2 Allergy status to sulfonamides; Z88.1 Allergy status to other antibiotic agents; Z91.041 Radiographic dye allergy status; Z79.899 Other long term (current) drug therapy; Z79.82 Long term (current) use of aspirin; Z79.4 Long term (current) use of insulin; Z66 Do not resuscitate; Z87.891 Personal history of nicotine dependence; Z99.2 Dependence on renal dialysis; Z68.34 Body mass index [BMI] 34.0-34.9, adult
CPT/HCPCS: 0097U; 36415; 36581; 75827; 80053; 80069; 82947; 83735; 85014; 85018; 85025; 93005; 93010; 96372; 99152; 99153; 99284-25; A9270-GY; C1750; C1769; G0257; G0378; J0360; J1200; J1644; J1720; J2250; J3010; J7040; Q9967; U0002

== ENCOUNTER → 2020-05-08 | Outpatient (CLI) | payer MEDICARE, OTHER ==
[~2020-05-08] MED LIST changes: +Bumetanide2 MG PO; +CALCIUM ACETAT667 M2 PO; +CLON.1 PO; +METO50ER PO; +NOVOLOG100 UNIT/2 SC; +OMEP20ER PO
== END ==
LOC: LAB 08:00 → LAB SHORT 08:00
DX: N39.0 Urinary tract infection, site not specified (principal)
CPT/HCPCS: 87086

== ENCOUNTER 2020-06-15 18:11 | Inpatient (IN) | payer MEDICARE, OTHER ==
[~2020-06-15] VITALS: Ht 170.2 cm; Wt 103.0 kg
[2020-06-15 19:30] LABS: BASOPHILS ABSOLUTE AUTO 0.03 K/mm3 (0.00-0.23); BASOPHILS PERCENT AUTO 1 % (0-2); EOSINOPHILS PERCENT AUTO 2 % (0-6); Hematocrit 31.4 % (33.0-51.0); Hemoglobin 10.1 g/dL (11.5-16.0); IMMATURE GRAN ABSOLUTE AUTO 0.02 K/mm3 (0.00-0.10); IMMATURE GRAN PERCENT AUTO 0 % (0-1); LYMPHOCYTES ABSOLUTE AUTO 1.47 K/mm3 (0.84-5.20); LYMPHOCYTES PERCENT AUTO 25 % (21-46); MONOCYTES PERCENT AUTO 7 % (4-13); Mean Corpuscular HGB 29.9 pg (26.0-34.0); Mean Corpuscular HGB Conc 32.2 g/dL (31.5-36.5); Mean Corpuscular Volume 93 fL (80-100); Mean Platelet Volume 10.7 fL (9.1-12.4); NEUTROPHILS ABSOLUTE AUTO 3.94 K/mm3 (1.96-9.15); NEUTROPHILS PERCENT AUTO 66 % (41-73); Platelet Count 251 K/mm3 (150-400); RDW Standard Deviation 47.4 fL (35.1-46.3); Red Blood Cell Count 3.38 M/mm3 (3.80-5.20); White Blood Cell Count 5.96 K/mm3 (4.00-11.30)
[2020-06-15 19:55] LABS: Alanine Aminotransfer (ALT/SGP 14 U/L (12-78); Albumin/Globulin Ratio 0.8 (0.8-1.8); Alk Phos 127 U/L (50-136); Anion Gap 8 mmol/L (6-16); Aspartate Aminotrans (AST/SGOT 15 U/L (12-37); Bilirubin, Total 0.5 mg/dL (0.1-1.0); Blood Urea Nitrogen 42 mg/dL (8-24); Bun/Creatinine Ratio 9.2 (12.0-20.0); CO2, Blood 30 mmol/L (21-32); Calcium, Blood 8.4 mg/dL (8.5-10.1); Chloride, Blood 105 mmol/L (98-108); Creatinine, Blood 4.56 mg/dL (0.40-1.00); Glomerular Filtration Rate 10 (60-); Glucose, Blood 238 mg/dL (70-99); Potassium, Blood 4.1 mmol/L (3.5-5.5); Sodium, Blood 143 mmol/L (136-145); Troponin I <0.015 ng/mL (0.000-0.040)
[2020-06-15] MEDS ORDERED: LEVEMIR100 UNIT/1 SC (21:24)
[2020-06-15] MEDS ORDERED: PANTOPRAZOLE SO40 M2 PO (21:25)
[2020-06-15] MEDS ORDERED: COMBIVENT RESPIM4 G1 INH (21:25)
[2020-06-15] MEDS ORDERED: ZOLOFT50 MG PO (21:26)
[2020-06-15] MEDS ORDERED: LOSA50 PO (21:27)
[2020-06-15] MEDS ORDERED: LOPE2C PO (23:23)
--- NOTE | 2020-06-16 00:20 | NUR ---
PT ADMITTED TO MEDICAL FLOOR FROM [facility]. AAOX4. SOMEWHAT ANXIOUS, REPORTING HIVES ON L HAND IN RESPONSE TO INFUSING ABT. NO HIVES OR ANY SKIN DISCOLORATION VISIBLE. NO INCREASED SOB OR SWELLING. COMPLETED IV ABT ORDERED WITHOUT INCIDENT. PERMACATH ON R CHEST W/GAUZE DRESSING CDI. PERIOTONEAL DIALYSIS PORT ON R ABD LOOPED AND W/DRESSING CDI. LSCTA W/DIM BASES. OCC NON-PRODUCTIVE COUGH. 02 SATS 94% ON RA. HOB ELEVATED FOR COMFORT. PT REPORTS FEELING SOB, BUT OVERALL IMPROVED SINCE ADMIT. RESPS APPEAR REGULAR, NON-LABORED. SAMPLE COLLECTED FOR RESP PCR AND DELIVERED TO LAB. BP 180/74 AT TOA, PRN LABETALOL ADMINISTERED AND BP 153/59 AND 168/64 UPON REASSESS. WANDERING ATRIAL PACEMAKER PER TELE SHIFT STACKER. CBG 240. CALL BUTTON EXPLAINED AND PLACED WITHIN REACH. ENCOURAGED PT TO CALL FOR ASSIST. WILL CONT TO MONITOR.
[2020-06-16 06:00] LABS: Adenovirus Not Detected (NOT DETECT); Bordetella pertussis Not Detected (NOT DETECT); Chlamydophila pneumoniae Not Detected (NOT DETECT); Coronavirus 229E Not Detected (NOT DETECT); Coronavirus HKU1 Not Detected (NOT DETECT); Coronavirus NL63 Not Detected (NOT DETECT); Coronavirus OC43 Not Detected (NOT DETECT); Human Metapneumovirus Not Detected (NOT DETECT); Human Rhinovirus/Enterovirus Not Detected (NOT DETECT); Influenza A/2009-H1 Not Detected (NOT DETECT); Influenza A/H1 Not Detected (NOT DETECT); Influenza A/H3 Not Detected (NOT DETECT); Influenza B Not Detected (NOT DETECT); Mycoplasma pneumoniae Not Detected (NOT DETECT); Parainfluenza Virus 1 Not Detected (NOT DETECT); Parainfluenza Virus 2 Not Detected (NOT DETECT); Parainfluenza Virus 3 Not Detected (NOT DETECT); Parainfluenza Virus 4 Not Detected (NOT DETECT); Respiratory Syncytial Virus Not Detected (NOT DETECT); SARS-Cov-2 (COVID-19), BioFire Not Detected (NOT DETECT)
--- NOTE | 2020-06-16 06:49 | NUR ---
SHIFT SUMMARY: BP THIS AM 161/71. CATAPRESS GIVEN PER ORDERS. AA0X4. ABLE TO MAKE NEEDS KNOWN. T/F W/ 1 ASSIST AND FWW TO AND FROM BATHROOM. ORDER RECEIVED FROM HOSPITALIST DR. WHITE FOR IMODIUM DUE TO FREQUENT EPISODES OF DIARRHEA. PT REPORTS CHRONIC DIARRHEA FOR WHICH SHE TAKES IMODIUM QHS. 02 93% ON RA. CONT TO REPORT MINOR SOB. OCC DRY HACKING COUGH. LSCTA W/DIM BASES. GENERALIZED EDEMA. EDEMA GREATER ON THE RIGHT SIDE. NUMBNESS FROM THE NECK DOWN AT BASELINE. PT DUE TO HAVE DIALYSIS TODAY.
--- NOTE | 2020-06-16 18:14 | NUR ---
SHIFT SUMMARY PT HAD DIALYSIS EARLY AFTERNOON. PT HAS HAD NO COMPLAINTS OF PAIN OR SHORTNESS OF BREATH THIS SHIFT. PT CONTINUES TO HAVE SWELLING T/O BODY. PT WANTING TO GO HOME BUT PHYSICIAN WANTING PT TO STAY ANOTHER NIGHT. NO ACUTE CHANGES THIS SHIFT. CALL LIGHT IN REACH. WILL CONTINUE TO MONITOR AND REPORT TO ONCOMING RN.
--- NOTE | 2020-06-16 19:52 | NUR ---
PT'S O2 SATS ON RA READING IN THE MID 80'S THIS EVENING WITH HS VITALS CHECK. PLACED PT ON 2 L O2 NC BRINGING HER O2 SATS UP TO THE MID 90'S.
[2020-06-17 04:54] LABS: Hemoglobin 9.2 g/dL (11.5-16.0)
[2020-06-17 05:14] LABS: Albumin, Blood 2.8 g/dL (3.4-5.0); Anion Gap 4 mmol/L (6-16); Blood Urea Nitrogen 33 mg/dL (8-24); Bun/Creatinine Ratio 7.8 (12.0-20.0); CO2, Blood 35 mmol/L (21-32); Calcium, Blood 8.1 mg/dL (8.5-10.1); Chloride, Blood 104 mmol/L (98-108); Creatinine, Blood 4.22 mg/dL (0.40-1.00); Glomerular Filtration Rate 11 (60-); Glucose, Blood 88 mg/dL (70-99); Phosphorus, Blood 3.7 mg/dL (2.5-4.9); Potassium, Blood 3.7 mmol/L (3.5-5.5); Sodium, Blood 143 mmol/L (136-145)
--- NOTE | 2020-06-17 05:31 | NUR ---
SHIFT SUMMARY PT PLEASANT AND COOPERATIVE. SLEPT WELL OFF AND ON THROUGHOUT THE NIGHT. EDEMA THROUGHOUT, SWELLING MORE SEVERE IN BUE'S THAN LE'S. PT DENIES ANY PAIN OR NAUSEA. R PD CATH TO RLQ ABD, PT REPORTS THIS CATH IS NON FUNCTIONING. PT ALSO HAS PERMACATH TO R CHEST WALL AND FISTULA TO RFA. GOOD THRILL AND BRUIT TO FISTULA. TELEMETRY IN PLACE READING SR 74. CBG 233 AT HS CHECK. PT DENIES ANY SOB. VITAL SIGNS STABLE. WILL CONTINUE TO MONITOR AND REPORT TO DAY RN.
[2020-06-17] MEDS ORDERED: LEVFLO500 PO (11:46)
[2020-06-17] MEDS ORDERED: VISBIOME PROBIOTIC PO (11:47)
--- NOTE | 2020-06-17 13:27 | NUR ---
DISCHARGE PT DISCHARGED TO HOME. THIS RN EXPLAINED DISCHARGE INSTRUCTIONS AND MEDICATIONS TO PT AND SHE REPORTS SHE UNDERSTANDS. IV REMOVED WITHOUT DIFFICULTY. PT'S MEDICATIONS FAXED TO [facility] PER REQUEST. BELONGINGS WITH PT. PT TRANSFERRED VIA WHEELCHAIR TO PRIVATE VEHICLE BY JANEL.
== END 2020-06-17 13:26 | disposition home or self-care (01) | DRG 304 ==
LOC: ER 18:11 → MEDS 18:12
PROVIDERS: Emergency Medicine; Internal Medicine Nephrology; ADMIT Internal Medicine
PROC: 5A1D70Z Performance of Urinary Filtration, Intermittent, Less than 6 Hours Per Day (ICD-10-PCS; 2020-06-16)
PROC: 5A1D70Z Performance of Urinary Filtration, Intermittent, Less than 6 Hours Per Day (ICD-10-PCS; principal; 2020-06-17)
DX: I16.0 Hypertensive urgency (principal); J18.9 Pneumonia, unspecified organism; N18.6 End stage renal disease; J44.0 Chronic obstructive pulmonary disease with (acute) lower respiratory infection; N25.81 Secondary hyperparathyroidism of renal origin; I12.0 Hypertensive chronic kidney disease with stage 5 chronic kidney disease or end stage renal disease; Z20.828 Contact with and (suspected) exposure to other viral communicable diseases; Z99.2 Dependence on renal dialysis; E11.22 Type 2 diabetes mellitus with diabetic chronic kidney disease; K21.9 Gastro-esophageal reflux disease without esophagitis; I87.2 Venous insufficiency (chronic) (peripheral); K52.9 Noninfective gastroenteritis and colitis, unspecified; D63.1 Anemia in chronic kidney disease; E78.5 Hyperlipidemia, unspecified; E88.09 Other disorders of plasma-protein metabolism, not elsewhere classified; Z66 Do not resuscitate; E66.01 Morbid (severe) obesity due to excess calories; Z68.35 Body mass index [BMI] 35.0-35.9, adult; Z85.3 Personal history of malignant neoplasm of breast; Z87.891 Personal history of nicotine dependence; Z79.82 Long term (current) use of aspirin; Z79.4 Long term (current) use of insulin
CPT/HCPCS: 0202U; 36415; 71045; 71046; 80053; 80069; 82947; 83735; 83880; 84145; 84484; 85014; 85018; 85025; 93005; 93010; 96365; 96372; 96375; 96376; 99285-25; A9270-GY; G0378; J0881; J1200; J1644; J1956; J2405

== ENCOUNTER 2020-08-19 06:15 | Emergency (ER) | payer MEDICARE, OTHER ==
[~2020-08-19] VITALS: Ht 170.2 cm; Wt 99.8 kg
[~2020-08-19 06:15] MED LIST changes: +COMBIVENT RESPIM4 G1 INH; +LEVEMIR100 UNIT/1 SC; +LEVFLO500 PO; +LOPE2C PO; +PANTOPRAZOLE SO40 M2 PO; +VISBIOME PROBIOTIC PO; +ZOLOFT50 MG PO
[2020-08-19] MEDS ORDERED: DOC250 PO (08:26)
[2020-08-19] MEDS ORDERED: BISA10S PR (08:26)
== END 2020-08-19 09:00 | disposition home or self-care (01) ==
LOC: ER 06:15
DX: K56.41 Fecal impaction (principal); I10 Essential (primary) hypertension; E11.9 Type 2 diabetes mellitus without complications; E78.5 Hyperlipidemia, unspecified; Z79.4 Long term (current) use of insulin; Z88.0 Allergy status to penicillin; Z88.2 Allergy status to sulfonamides; Z88.8 Allergy status to other drugs, medicaments and biological substances; Z79.82 Long term (current) use of aspirin; Z79.899 Other long term (current) drug therapy; Z91.041 Radiographic dye allergy status
CPT/HCPCS: 74019; 99283-25

== ENCOUNTER 2021-06-17 09:53 | Emergency (ER) | payer MEDICARE, OTHER ==
[~2021-06-17] VITALS: Ht 167.6 cm; Wt 72.6 kg
[~2021-06-17 09:53] MED LIST changes: +BISA10S PR; +DOC250 PO
== END 2021-06-17 14:40 | disposition home or self-care (01) ==
LOC: ER 09:53
DX: R68.84 Jaw pain (principal); E11.9 Type 2 diabetes mellitus without complications; I10 Essential (primary) hypertension; E78.5 Hyperlipidemia, unspecified; Z79.899 Other long term (current) drug therapy; Z79.4 Long term (current) use of insulin; Z79.82 Long term (current) use of aspirin
CPT/HCPCS: 84484; 93005; 93010; 99284-25

== ENCOUNTER 2021-07-14 05:06 | Emergency (ER) | payer MEDICARE, OTHER ==
[~2021-07-14] VITALS: Ht 170.2 cm; Wt 99.8 kg
[2021-07-14 05:53] LABS: BASOPHILS ABSOLUTE AUTO 0.03 K/mm3 (0.00-0.23); BASOPHILS PERCENT AUTO 0 % (0-2); EOSINOPHILS ABSOLUTE AUTO 0.01 K/mm3 (0.00-0.68); EOSINOPHILS PERCENT AUTO 0 % (0-6); Hematocrit 28.2 % (33.0-51.0); IMMATURE GRAN ABSOLUTE AUTO 0.06 K/mm3 (0.00-0.10); IMMATURE GRAN PERCENT AUTO 1 % (0-1); LYMPHOCYTES ABSOLUTE AUTO 1.13 K/mm3 (0.84-5.20); LYMPHOCYTES PERCENT AUTO 9 % (21-46); MONOCYTES ABSOLUTE AUTO 0.72 K/mm3 (0.16-1.47); MONOCYTES PERCENT AUTO 6 % (4-13); Mean Corpuscular HGB 30.5 pg (26.0-34.0); Mean Corpuscular HGB Conc 31.9 g/dL (31.5-36.5); Mean Corpuscular Volume 96 fL (80-100); Mean Platelet Volume 9.8 fL (9.1-12.4); NEUTROPHILS ABSOLUTE AUTO 10.41 K/mm3 (1.96-9.15); NEUTROPHILS PERCENT AUTO 84 % (41-73); Platelet Count 266 K/mm3 (150-400); RDW Coefficient Variation 14.5 % (11.7-14.2); RDW Standard Deviation 50.4 fL (35.1-46.3); Red Blood Cell Count 2.95 M/mm3 (3.80-5.20); White Blood Cell Count 12.36 K/mm3 (4.00-11.30)
[2021-07-14 06:05] LABS: Albumin, Blood 2.2 g/dL (3.4-5.0); Albumin/Globulin Ratio 0.5 (0.8-1.8); Bilirubin, Total 0.4 mg/dL (0.1-1.0); Bun/Creatinine Ratio 4.8 (12.0-20.0); Creatinine, Blood 6.51 mg/dL (0.40-1.00); Globulin, Blood 4.3 g/dL (2.2-4.0); Magnesium, Blood 2.1 mg/dL (1.6-2.4); Potassium, Blood 4.4 mmol/L (3.5-5.5); Total Protein, Blood 6.5 g/dL (6.4-8.2)
[2021-07-14 07:28] LABS: Source, Urine Clean Catch
[2021-07-14 07:31] LABS: Appearance, Urine Turbid (Clear); Bilirubin, Urine Neg (Neg); Blood, Urine 2+ (Neg); Color, Urine Yellow (P-Yellow); Glucose Qualitative, Urine Neg (Neg); Ketones, Urine Neg (Neg); Leukocyte Esterase, Urine 3+ (Neg); Nitrite, Urine Neg (Neg); Protein, Urine 4+ (Neg); Urobilinogen, Urine NORM (Normal); pH, Urine 6.5 (5.0-8.0)
[2021-07-14 07:37] LABS: White Blood Cells, Urine TNTC /hpf (0-5)
[2021-07-14 07:41] LABS: Bacteria Many /hpf; Squamous Epithelial Cells Not Seen /hpf (Few)
[2021-07-15] MEDS ORDERED: LOSA50 PO (15:58)
[2021-07-15] MEDS ORDERED: CARV25 PO (16:00)
[2021-07-15] MEDS ORDERED: MELA3 PO (16:01)
[2021-07-15] MEDS ORDERED: SENN187 PO (16:02)
[2021-07-15] MEDS ORDERED: NIFE20 PO (16:04)
[2021-07-15] MEDS ORDERED: ACET500 PO (16:04)
[2021-07-15] MEDS ORDERED: HYDRA50 PO (16:06)
[2021-07-15] MEDS ORDERED: CALCIUM CARBON500 M1 PO (16:09)
[2021-07-15] MEDS ORDERED: MIRALAX17 GM PO (16:11)
[2021-07-15] MEDS ORDERED: HYDRA25 PO (16:12)
[2021-07-15] MEDS ORDERED: ONDA4 PO (16:12)
[2021-07-15] MEDS ORDERED: HUMULIN N100 UNIT/1 SC (16:15)
== END 2021-07-14 11:44 | disposition home or self-care (01) ==
LOC: ER 05:06
PROVIDERS: Emergency Medicine
DX: N39.0 Urinary tract infection, site not specified (principal); I12.0 Hypertensive chronic kidney disease with stage 5 chronic kidney disease or end stage renal disease; E11.22 Type 2 diabetes mellitus with diabetic chronic kidney disease; N18.6 End stage renal disease; J44.9 Chronic obstructive pulmonary disease, unspecified; E78.5 Hyperlipidemia, unspecified; Z87.891 Personal history of nicotine dependence; Z88.0 Allergy status to penicillin; Z88.2 Allergy status to sulfonamides; Z91.048 Other nonmedicinal substance allergy status; Z79.4 Long term (current) use of insulin; Z79.82 Long term (current) use of aspirin
CPT/HCPCS: 36415; 51702; 74176; 80053; 81001; 83605; 83690; 83735; 84145; 85025; 87077; 87086; 87186; 96365; 96375; 99285-25; A9270; J1170; J1956

== ENCOUNTER 2021-07-15 15:44 | Inpatient (IN) | payer MEDICARE, OTHER ==
[~2021-07-15] VITALS: Ht 170.2 cm; Wt 104.3 kg
[2021-07-15] MEDS ORDERED: LOSA50 PO (15:58)
[2021-07-15] MEDS ORDERED: CARV25 PO (16:00)
[2021-07-15] MEDS ORDERED: MELA3 PO (16:01)
[2021-07-15] MEDS ORDERED: SENN187 PO (16:02)
[2021-07-15] MEDS ORDERED: ACET500 PO (16:04)
[2021-07-15] MEDS ORDERED: NIFE20 PO (16:04)
[2021-07-15] MEDS ORDERED: HYDRA50 PO (16:06)
[2021-07-15] MEDS ORDERED: CALCIUM CARBON500 M1 PO (16:09)
[2021-07-15] MEDS ORDERED: MIRALAX17 GM PO (16:11)
[2021-07-15] MEDS ORDERED: HYDRA25 PO (16:12)
[2021-07-15] MEDS ORDERED: ONDA4 PO (16:12)
[2021-07-15 16:14] LABS: BASOPHILS ABSOLUTE AUTO 0.02 K/mm3 (0.00-0.23); BASOPHILS PERCENT AUTO 0 % (0-2); EOSINOPHILS ABSOLUTE AUTO 0.01 K/mm3 (0.00-0.68); EOSINOPHILS PERCENT AUTO 0 % (0-6); Hematocrit 24.9 % (33.0-51.0); IMMATURE GRAN PERCENT AUTO 1 % (0-1); LYMPHOCYTES ABSOLUTE AUTO 1.35 K/mm3 (0.84-5.20); LYMPHOCYTES PERCENT AUTO 9 % (21-46); MONOCYTES ABSOLUTE AUTO 0.94 K/mm3 (0.16-1.47); MONOCYTES PERCENT AUTO 6 % (4-13); Mean Corpuscular HGB Conc 32.1 g/dL (31.5-36.5); Mean Corpuscular Volume 97 fL (80-100); Mean Platelet Volume 10.4 fL (9.1-12.4); NEUTROPHILS PERCENT AUTO 85 % (41-73); Platelet Count 188 K/mm3 (150-400); RDW Coefficient Variation 14.5 % (11.7-14.2); RDW Standard Deviation 51.3 fL (35.1-46.3); Red Blood Cell Count 2.58 M/mm3 (3.80-5.20); White Blood Cell Count 15.82 K/mm3 (4.00-11.30)
[2021-07-15] MEDS ORDERED: HUMULIN N100 UNIT/1 SC (16:15)
[2021-07-15 16:29] LABS: Albumin, Blood 1.7 g/dL (3.4-5.0); Albumin/Globulin Ratio 0.4 (0.8-1.8); Bilirubin, Total 0.3 mg/dL (0.1-1.0); Bun/Creatinine Ratio 6.9 (12.0-20.0); Calcium, Blood 8.9 mg/dL (8.5-10.1); Creatinine, Blood 7.94 mg/dL (0.40-1.00); Globulin, Blood 4.1 g/dL (2.2-4.0); Potassium, Blood 5.1 mmol/L (3.5-5.5); Total Protein, Blood 5.8 g/dL (6.4-8.2)
[2021-07-16 11:54] LABS: SARS-Cov-2 (COVID-19) PCR, MMC NEGATIVE (NEGATIVE)
--- NOTE | 2021-07-16 14:29 | NUR ---
DIALYSIS-PD PT IS PRESENTLY ON HD BUT HAS A PD CATH, CLEANED AND REDRESSED. SITE CLEAR. NO DRAINAGE.
--- NOTE | 2021-07-16 17:31 | NUR ---
PT PLEASANT COOP MORE ALERT THIS AFT THAN THIS AM. NOT KNOWING YEAR, BUT DID KNOW END OF JUN/FIRST OF JUL. KNOWS HER ATE, . THAT IS AT HOSP, BUT NOT WHERE. KNOWS DORA NAME & . STATES IS BETTER THIS AFT AND PAIN MUCH IMPROVED WITH ULTRAM. DIET CHANGED TO PUREE PER PT NEEDS TODAY. NEW MEDS STARTED FOR UTI PAIN. NO OTHER NEW CONCERNS NOTED. BED IN LOW POSITION, CALL LITE IN REACH, BED ALARM ON FOR SAFETY
--- NOTE | 2021-07-17 04:45 | NUR ---
PT RESTING ON BED QUIETLY. NO ACUTE DISTRESS. HOURLY ROUND MADE. CALL LIGHT WITIN REACH. MORE PLEASANT . NO COMPLAINING OF ANY PAIN. KEEP MONITORING
[2021-07-17 05:59] LABS: Hematocrit 25.1 % (33.0-51.0); Hemoglobin 7.8 g/dL (11.5-16.0); Mean Corpuscular HGB 30.1 pg (26.0-34.0); Mean Corpuscular HGB Conc 31.1 g/dL (31.5-36.5); Mean Corpuscular Volume 97 fL (80-100); Mean Platelet Volume 10.3 fL (9.1-12.4); Platelet Count 200 K/mm3 (150-400); RDW Coefficient Variation 14.4 % (11.7-14.2); RDW Standard Deviation 50.6 fL (35.1-46.3); Red Blood Cell Count 2.59 M/mm3 (3.80-5.20); White Blood Cell Count 7.88 K/mm3 (4.00-11.30)
[2021-07-17 06:17] LABS: Albumin, Blood 1.7 g/dL (3.4-5.0); Anion Gap 6 mmol/L (6-16); Blood Urea Nitrogen 32 mg/dL (8-24); Bun/Creatinine Ratio 5.6 (12.0-20.0); CO2, Blood 32 mmol/L (21-32); Calcium, Blood 8.4 mg/dL (8.5-10.1); Chloride, Blood 99 mmol/L (98-108); Creatinine, Blood 5.72 mg/dL (0.40-1.00); Glomerular Filtration Rate 7 (60-); Glucose, Blood 113 mg/dL (70-99); Magnesium, Blood 2.5 mg/dL (1.6-2.4); Phosphorus, Blood 3.5 mg/dL (2.5-4.9); Potassium, Blood 4.6 mmol/L (3.5-5.5); Sodium, Blood 137 mmol/L (136-145)
[2021-07-17 17:08] LABS: Gentamicin, Random 2.5 ug/Ml
--- NOTE | 2021-07-17 18:32 | NUR ---
PT PLEASANT TODAY. PAIN MANAGED WITH AVAIL MEDS. VSS. CBG SOME LOWER THIS AFT. SO HELD INSULIN PER DR. SMART. ALSO DROPPED SLIDING SCALE FROM MED TO LOW. CONTINUE TO MONITOR. NO DIALYSIS TODAY. NO NEW CHANGES NOTED. BED IN LOW POSITION, CALL LITE IN REACH.
--- NOTE | 2021-07-18 02:52 | NUR ---
JUST RECEIVED A NEW BLOOD CULTURE RESULT . MADE AWARE. PT RECEIVED GENTAMYCIN ALREADY. KEEP MONITORING
[2021-07-18 05:20] LABS: Hematocrit 24.7 % (33.0-51.0); Hemoglobin 7.9 g/dL (11.5-16.0)
[2021-07-18 05:46] LABS: Albumin, Blood 1.7 g/dL (3.4-5.0); Anion Gap 7 mmol/L (6-16); Blood Urea Nitrogen 48 mg/dL (8-24); Bun/Creatinine Ratio 7.6 (12.0-20.0); CO2, Blood 30 mmol/L (21-32); Calcium, Blood 8.3 mg/dL (8.5-10.1); Chloride, Blood 99 mmol/L (98-108); Creatinine, Blood 6.31 mg/dL (0.40-1.00); Glomerular Filtration Rate 6 (60-); Glucose, Blood 107 mg/dL (70-99); Magnesium, Blood 2.3 mg/dL (1.6-2.4); Phosphorus, Blood 3.6 mg/dL (2.5-4.9); Potassium, Blood 4.5 mmol/L (3.5-5.5); Sodium, Blood 136 mmol/L (136-145)
--- NOTE | 2021-07-18 10:32 | NUR ---
dr odonnell request hold calcium iv. done. ordered lab. called with result. dr odonnell okayed give calcium iv now
[2021-07-18 14:36] LABS: Gentamicin, Random 0.7 ug/Ml
--- NOTE | 2021-07-18 18:11 | NUR ---
PT QUITE PLEASANT TODAY. DID HOLD INSULIN FOR LOWER CBGS. DIACUSSED WITH B/P WAS ELEVATED SOME. HELD AM B/P MED PER DIALYSIS PER BROOKLYNN SCHAFFER. IT APPEARS SHE CAN HANDLE DIALYSIS TAKING B/P MEDS. PT A/O X3 TALKING. PAIN WELL CONTROLLED WITH AVAIL MEDS. BED IN LOW POSITION, CALL LITE IN REACH, CALLS APPROP
[2021-07-18] MEDS ORDERED: Calcium Acetat667 MG PO (22:47)
[2021-07-18] MEDS ORDERED: SERT50 PO (23:44)
[2021-07-19 04:52] LABS: Hematocrit 24.5 % (33.0-51.0)
[2021-07-19 05:28] LABS: Albumin, Blood 1.7 g/dL (3.4-5.0); Anion Gap 7 mmol/L (6-16); Blood Urea Nitrogen 28 mg/dL (8-24); Bun/Creatinine Ratio 6.8 (12.0-20.0); CO2, Blood 30 mmol/L (21-32); Calcium, Blood 8.4 mg/dL (8.5-10.1); Chloride, Blood 99 mmol/L (98-108); Creatinine, Blood 4.12 mg/dL (0.40-1.00); Glomerular Filtration Rate 11 (60-); Glucose, Blood 113 mg/dL (70-99); Potassium, Blood 4.1 mmol/L (3.5-5.5); Sodium, Blood 136 mmol/L (136-145)
[2021-07-19 05:45] LABS: Phosphorus, Blood 3.4 mg/dL (2.5-4.9)
--- NOTE | 2021-07-19 12:32 | NUR ---
CHISHOLM DCED CHISHOLM CATHETER PRESENT DCED AFTER SPEAKING WITH DR. SEPULVEDA. PT STATES SHE IS NORMALLY INCONT. ATTENDS IN PLACE. CATHETER TIP INTACT.
--- NOTE | 2021-07-19 17:42 | NUR ---
SHIFT SUMMARY PT RECIEVED DIALYSIS TODAY. CHISHOLM CATH REMOVED AT [address] SEPULVEDA. PT HAS YET TO VOID, BUT DOESNT CREATE MUCH URINE FROM HD. PT ENCOURAGED TO DRINK SOME WATER SHE HAS ONLY DRANK COFFEE TODAY. PT STATES SHE KNOWS SHE WAS BAD TODAY AND WILL WORK ON SOME WATER. NO OTHER ACUTE CHANGES IN ASSESSMENT AT THIS TIME. VS REVIEWED. CALL LIGHT IN REACH.
--- NOTE | 2021-07-20 04:37 | NUR ---
SHIFT SUMMARY A/OX3, FORGETFUL AT TIMES. R. SIDE FLACCID. Q2 TURNS AND PRN. PT ABLE TO MAKE NEEDS KNOWN. VSS, NO ACUTE CHANGES AT THIS TIME. BED IN LOWEST POSITION WITH CALL LIGHT IN REACH. WILL CONTINUE TO MONITOR AND REPORT TO ONCOMING RN.
[2021-07-20 05:32] LABS: Hematocrit 24.7 % (33.0-51.0)
[2021-07-20 06:00] LABS: Albumin, Blood 1.8 g/dL (3.4-5.0); Anion Gap 9 mmol/L (6-16); Blood Urea Nitrogen 27 mg/dL (8-24); Bun/Creatinine Ratio 7.1 (12.0-20.0); CO2, Blood 29 mmol/L (21-32); Calcium, Blood 8.9 mg/dL (8.5-10.1); Chloride, Blood 96 mmol/L (98-108); Creatinine, Blood 3.81 mg/dL (0.40-1.00); Glomerular Filtration Rate 12 (60-); Glucose, Blood 102 mg/dL (70-99); Magnesium, Blood 2.1 mg/dL (1.6-2.4); Phosphorus, Blood 3.8 mg/dL (2.5-4.9); Sodium, Blood 134 mmol/L (136-145)
--- NOTE | 2021-07-20 10:00 | NUR ---
OLIG[place] DR. SEPULVEDA NOTIFIED THAT PT HAS NOT VOIDED SINE CHISHOLM WAS REMOVED YESTERDAY. BLADDER SCAN REVEALED ONLY [address] SEPULVEDA ORDERED TO CONTINUE MONITORING FOR NOW.
--- NOTE | 2021-07-20 15:00 | NUR ---
URINARY RETENTION PT STILL HAD NOT VOIDED THIS AFTERNOON. PT STATES SHE HAS NO URGENCY TO VOID. BLADDER SCAN REVEALED 396. DR. SEPULVEDA NOTIFIED. ORDER FOR INDWELLING CHISHOLM CATH TO BE PLACED. CHISHOLM INSERTED THIS SHIFT. PT TOLERTED WELL. SAMPLE SENT TO LAB.
[2021-07-20 15:06] LABS: Source, Urine Catheter
[2021-07-20 15:22] LABS: Appearance, Urine Clear (Clear); Bilirubin, Urine Neg (Neg); Blood, Urine Neg (Neg); Color, Urine Yellow (P-Yellow); Glucose Qualitative, Urine 4+ (Neg); Ketones, Urine 3+ (Neg); Leukocyte Esterase, Urine Neg (Neg); Nitrite, Urine Neg (Neg); Protein, Urine 3+ (Neg); Specific Gravity, Urine 1.025 (1.003-1.022); Urobilinogen, Urine NORM (Normal)
[2021-07-20 15:55] LABS: Red Blood Cells, Urine 0-2 /hpf (0-2)
[2021-07-20 15:56] LABS: Bacteria Few /hpf; Squamous Epithelial Cells Few /hpf (Few)
--- NOTE | 2021-07-20 16:39 | NUR ---
SHIFT SUMMARY PLAN TO POSSIBLY DC TOMORROW BACK TO [facility]. PG PLACEMENT NEEDED PRIOR TO DC. CHISHOLM PLACED FOR URINARY RETENTION TODAY. PT COMPLAINING OF HEARTBURN TODAY. TUMS PRN. NO DIALYSIS TODAY. PT GIVEN BEDBATH AND REPOSITIONED T/O THE DAY. NO OTHER ACUTE CHANGES IN ASSESSMENT AT THIS TIME. VS REVIEWED. AFTERNOON COREG GIVEN TO HELP WITH BP CONTROL. GOAL IS A SBP OF [address] SEPULVEDA[address] PT RESTING IN BED. CALL LIGHT IN REACH.
[2021-07-21 05:14] LABS: Hematocrit 25.5 % (33.0-51.0); Hemoglobin 8.4 g/dL (11.5-16.0)
[2021-07-21 05:41] LABS: Anion Gap 7 mmol/L (6-16); Blood Urea Nitrogen 40 mg/dL (8-24); Bun/Creatinine Ratio 7.6 (12.0-20.0); CO2, Blood 30 mmol/L (21-32); Calcium, Blood 9.1 mg/dL (8.5-10.1); Chloride, Blood 95 mmol/L (98-108); Creatinine, Blood 5.24 mg/dL (0.40-1.00); Glomerular Filtration Rate 8 (60-); Glucose, Blood 132 mg/dL (70-99); Magnesium, Blood 2.2 mg/dL (1.6-2.4); Phosphorus, Blood 4.9 mg/dL (2.5-4.9); Potassium, Blood 4.2 mmol/L (3.5-5.5); Sodium, Blood 132 mmol/L (136-145)
--- NOTE | 2021-07-21 06:47 | NUR ---
SHIFT SUMMARY A/OX3, FORGETFUL AT TIMES. C/O ONGOING HEARTBURN, MEDICATED PER EMAR. PERMACATH TO RCW. PD DRESSING C/D/I. Q2 REPOSITIONING AND PRN FOR COMFORT. BED IN LOWEST POSITION WITH CALL LIGHT IN REACH. WILL CONTINUE TO MONITOR AND REPORT TO ONCOMING RN.
[2021-07-21 10:24] LABS: Gentamicin, Random 2.6 ug/Ml
[2021-07-21 10:54] LABS: SARS-Cov-2 (COVID-19) PCR, MMC NEGATIVE (NEGATIVE)
[2021-07-21] MEDS ORDERED: Docusate Sodiu250 MG PO (12:40)
[2021-07-21] MEDS ORDERED: GENTAMYCIN IV (12:42)
[2021-07-21] MEDS ORDERED: TRAM50 PO (12:43)
[2021-07-21] MEDS ORDERED: VISBIOME 112.51 EACH PO (12:43)
--- NOTE | 2021-07-21 15:51 | NUR ---
1520: PT ARTERIAL LINE CLOTTED OFF. DIALYSIS COMPLETED 15 MINUTES EARLY PER PCT TAMARA MATT. VENOUS LINE FLUSHED PER PROTOCOL WITH SODIUM CITRATE WITHOUT DIFFICULTY. ARETERIAL LINE CLAMPED AND CAPPED. DR HOLLY NOTIFIED AND DR MENESES CALLED FOR CONSULT. WILL EVALUATE TOMORROW. REPORT TO ARGENIS ELIZONDO RN. RN TO ORDER CONSULT. CAITLYN
--- NOTE | 2021-07-21 17:21 | NUR ---
SHIFT SUMMARY PT IS AOX4. PT MEDICATED FOR PAIN X1. PT DENIES N/V, SOB. PT HAD DIALYSIS TODAY AND WAS PENDING DC TO [facility], BUT A CLOT IS NOW IN PERMACATH DURING DIALYSIS. SHRINK PIT OPERATOR SPOKE WITH DR. MENESES ABOUT CLOT REMOVAL AND PT NOW PENDING PROCEDURE. PT APPETITE IS GOOD. THIS RN REMOVED PT'S CHISHOLM AND PT HAS YET TO VOID, BLADDER SCAN IS 181 ML THIS BARRY. PT IS BEDREST WITH Q2 TURNS. RIGHT SIDE REMAINS FLACCID. PT DID NOT HAVE VISITORS THIS SHIFT. PT IS IN BED, CALL LIGHT IN REACH, LOW POSITION.
[2021-07-22 05:29] LABS: Hematocrit 23.3 % (33.0-51.0); Hemoglobin 7.5 g/dL (11.5-16.0)
--- NOTE | 2021-07-22 05:32 | NUR ---
SHIFT SUMMARY PT COMPLAINING OF SEVERE HEART BURN THIS EVENING. CAUSING HER TO HAVE A SMALL EPISODE OF EMESIS. ORDERED TUMS GIVEN WITH LITTLE TO NO EFFECT. NEW ONE TIME ORDER FOR A GI COCKTAIL. PT HAD A DIFFICULT TIME SWALLOWING IT RELATED TO THE TASTE. AFTER GI COCKTAIL PT FELL ASLEEP AND SLEPT WELL THROUGHOUT THE NIGHT. EVEN WHEN WOKEN BY STAFF PT HAD NO FURTHER COMPLAINTS OF HEARTBURN. PT HAS STILL NOT VOIDED, HOWEVER, BLADDER SCAN ONLY READING 131 MLS. PT DENIES THE URGE TO VOID. VITAL SIGNS STABLE. PT SITTING UP IN BED WATCHING TV AT THIS TIME. WILL CONTINUE TO MONITOR.
[2021-07-22 06:04] LABS: Albumin, Blood 1.9 g/dL (3.4-5.0); Anion Gap 8 mmol/L (6-16); Blood Urea Nitrogen 34 mg/dL (8-24); Bun/Creatinine Ratio 7.4 (12.0-20.0); CO2, Blood 29 mmol/L (21-32); Calcium, Blood 8.6 mg/dL (8.5-10.1); Chloride, Blood 103 mmol/L (98-108); Gentamicin, Random 1.5 ug/Ml; Glomerular Filtration Rate 9 (60-); Glucose, Blood 132 mg/dL (70-99); Magnesium, Blood 2.2 mg/dL (1.6-2.4); Phosphorus, Blood 4.2 mg/dL (2.5-4.9); Potassium, Blood 4.3 mmol/L (3.5-5.5); Sodium, Blood 140 mmol/L (136-145)
--- NOTE | 2021-07-22 14:09 | NUR ---
07/22/21 1409 Macrina Ledezma PATIENT IS ON SCHEDULED ANTIBIOTICS.
--- NOTE | 2021-07-22 16:14 | NUR ---
SHIFT SUMMARY PT IS AOX4. PT DENIES PAIN, N/V, SOB. PT HAD PERMACATH REPLACED TODAY. [facility]. PT APPETITE IS GOOD THIS BARRY. PT REMAINS ON BEDREST WITH FLACCID RIGHT SIDE. PERMACATH DRESSING C/D/I. PT DID NOT HAVE VISITORS THIS SHIFT. PT IS IN ROOM, CALL LIGHT IN REACH, LOW POSITION.
--- NOTE | 2021-07-23 05:14 | NUR ---
PT HAS BEEN RESTING FOR MOST OF THE NIGHT MAKING NO COMPLAINSTS, ON BED REST WITH Q2 TURNS AND ORIENTED X4. HTN TREATED PER EMAR. NO OTHER EVENTS TO REPORT OVERNIGHT. STAFF WILL CONT TO MONITOR.
[2021-07-23 06:36] LABS: Hematocrit 22.2 % (33.0-51.0); Hemoglobin 7.1 g/dL (11.5-16.0)
[2021-07-23 07:06] LABS: Albumin, Blood 1.9 g/dL (3.4-5.0); Anion Gap 7 mmol/L (6-16); Blood Urea Nitrogen 44 mg/dL (8-24); Bun/Creatinine Ratio 7.5 (12.0-20.0); CO2, Blood 29 mmol/L (21-32); Calcium, Blood 8.5 mg/dL (8.5-10.1); Chloride, Blood 103 mmol/L (98-108); Creatinine, Blood 5.86 mg/dL (0.40-1.00); Glomerular Filtration Rate 7 (60-); Glucose, Blood 162 mg/dL (70-99); Magnesium, Blood 2.3 mg/dL (1.6-2.4); Phosphorus, Blood 4.3 mg/dL (2.5-4.9); Sodium, Blood 139 mmol/L (136-145)
[2021-07-23 15:22] LABS: SARS-Cov-2 (COVID-19) PCR, MMC NEGATIVE (NEGATIVE)
[2021-07-23 15:48] LABS: Gentamicin, Random 0.7 ug/Ml
--- NOTE | 2021-07-23 16:09 | NUR ---
PT TO DISCHARGE 5:45 PM TRANSPORT. GIVE GENTAMYCIN THEN PULL IV PER DR SEPULVEDA.
--- NOTE | 2021-07-23 16:10 | NUR ---
REPORT CALLED TO KENNEDI AT [facility]
--- NOTE | 2021-07-23 16:42 | NUR ---
PT PENDING D/C. MAY NOT GET TO EAT. CBG 169. CALLED [facility] HOLD ALL INSULIN TONITE.
--- NOTE | 2021-07-23 19:28 | NUR ---
PT IV PULLED INTACT PRIOR TO D/C. NO TELE. PT TALKATIVE. PLEASANT COOP. TRANSPORT TO [facility] CALLED AND WAS TO BE LATE. AIDE ASSISTED TO TRANSPORT CLINT AND PT OUT DOOR AT 1825.
== END 2021-07-23 18:28 | DRG 853 ==
LOC: ER 15:44 → MEDS 16:26 → ENPENDDIS 07-21 16:52 → MEDS 07-23 18:28
PROVIDERS: Emergency Medicine; Family Medicine; Hospitalist; Internal Medicine; Internal Medicine Nephrology; Pharmacist; Student in an Organized Health Care Education/Training Program; ADMIT Internal Medicine
PROC: 5A1D70Z Performance of Urinary Filtration, Intermittent, Less than 6 Hours Per Day (ICD-10-PCS; principal; 2021-07-16)
PROC: XW0 New Technology, Anatomical Regions, Introduction (ICD-10-PCS; 2021-07-16)
PROC: 3E03317 Introduction of Other Thrombolytic into Peripheral Vein, Percutaneous Approach (ICD-10-PCS; 2021-07-16)
PROC: 02PY03Z Removal of Infusion Device from Great Vessel, Open Approach (ICD-10-PCS; 2021-07-22)
PROC: 0JPT3XZ Removal of Tunneled Vascular Access Device from Trunk Subcutaneous Tissue and Fascia, Percutaneous Approach (ICD-10-PCS; 2021-07-22)
DX: A41.51 Sepsis due to Escherichia coli [E. coli] (principal); N18.6 End stage renal disease; G93.49 Other encephalopathy; I12.0 Hypertensive chronic kidney disease with stage 5 chronic kidney disease or end stage renal disease; N25.81 Secondary hyperparathyroidism of renal origin; E87.1 Hypo-osmolality and hyponatremia; I69.251 Hemiplegia and hemiparesis following other nontraumatic intracranial hemorrhage affecting right dominant side; T82.868A Thrombosis due to vascular prosthetic devices, implants and grafts, initial encounter; N13.6 Pyonephrosis; Z66 Do not resuscitate; Z20.822 Contact with and (suspected) exposure to COVID-19; E11.22 Type 2 diabetes mellitus with diabetic chronic kidney disease; J44.9 Chronic obstructive pulmonary disease, unspecified; E78.5 Hyperlipidemia, unspecified; I87.2 Venous insufficiency (chronic) (peripheral); D63.1 Anemia in chronic kidney disease; E87.5 Hyperkalemia; K21.9 Gastro-esophageal reflux disease without esophagitis; E11.610 Type 2 diabetes mellitus with diabetic neuropathic arthropathy; E83.41 Hypermagnesemia; K59.09 Other constipation; K44.9 Diaphragmatic hernia without obstruction or gangrene; R33.8 Other retention of urine; E87.70 Fluid overload, unspecified; Z88.0 Allergy status to penicillin; Z95.828 Presence of other vascular implants and grafts; Z88.2 Allergy status to sulfonamides; Z88.1 Allergy status to other antibiotic agents; Z88.8 Allergy status to other drugs, medicaments and biological substances; Z91.041 Radiographic dye allergy status; Z91.048 Other nonmedicinal substance allergy status; Z85.3 Personal history of malignant neoplasm of breast; Z90.49 Acquired absence of other specified parts of digestive tract; Z98.890 Other specified postprocedural states; Z99.2 Dependence on renal dialysis; Z87.891 Personal history of nicotine dependence; Z79.4 Long term (current) use of insulin; Z79.899 Other long term (current) drug therapy; Z28.21 Immunization not carried out because of patient refusal; Z90.11 Acquired absence of right breast and nipple; Y83.8 Other surgical procedures as the cause of abnormal reaction of the patient, or of later complication, without mention of misadventure at the time of the procedure
CPT/HCPCS: 36415; 77001; 80053; 80069; 80170; 81001; 82330; 82947; 83735; 85014; 85018; 85025; 85027; 87040; 87076; 93005; 93010; 94640; 94760; 96374; 99284-25; A9270; C1750; J0610; J0881; J1580; J1644; J1815; J2250; J2405; J2704; J2997; J3010; J7030; U0004

== ENCOUNTER → 2021-08-20 | Outpatient (CLI) | payer MEDICARE, OTHER ==
[~2021-08-20] MED LIST changes: +ACET500 PO; +CALCIUM CARBON500 M1 PO; +CARV25 PO; +Calcium Acetat667 MG PO; +Docusate Sodiu250 MG PO; +GENTAMYCIN IV; +HUMULIN N100 UNIT/1 SC; +HYDRA25 PO; +HYDRA50 PO; +MELA3 PO; +MIRALAX17 GM PO; +NIFE20 PO; +ONDA4 PO; +SENN187 PO; +SERT50 PO; +TRAM50 PO; +VISBIOME 112.51 EACH PO
[2021-08-20 19:41] LABS: Appearance, Urine Cloudy (Clear); Color, Urine Yellow (P-Yellow); Leukocyte Esterase, Urine 3+ (Neg)
[2021-08-20 19:42] LABS: Bilirubin, Urine Neg (Neg); Blood, Urine 2+ (Neg); Glucose Qualitative, Urine Neg (Neg); Ketones, Urine Neg (Neg); Nitrite, Urine Neg (Neg); Protein, Urine 3+ (Neg); Urobilinogen, Urine NORM (Normal)
[2021-08-20 19:55] LABS: White Blood Cells, Urine 25-50 /hpf (0-5)
[2021-08-20 19:57] LABS: Bacteria Few /hpf; Squamous Epithelial Cells Few /hpf (Few)
== END | disposition home or self-care (01) ==
LOC: EDSTATUS 10:25 → LAB UVN 14:35
PROVIDERS: Internal Medicine
DX: N39.0 Urinary tract infection, site not specified (principal)
CPT/HCPCS: 81001; 87086

== ENCOUNTER → 2021-08-21 | Outpatient (CLI) | payer MEDICARE, OTHER ==
[2021-08-21 16:28] LABS: Hematocrit 33.3 % (33.0-51.0); Hemoglobin 10.7 g/dL (11.5-16.0); Mean Corpuscular HGB 29.6 pg (26.0-34.0); Mean Corpuscular HGB Conc 32.1 g/dL (31.5-36.5); Mean Corpuscular Volume 92 fL (80-100); Mean Platelet Volume 9.5 fL (9.1-12.4); Platelet Count 256 K/mm3 (150-400); RDW Coefficient Variation 13.7 % (11.7-14.2); RDW Standard Deviation 46.5 fL (35.1-46.3); Red Blood Cell Count 3.61 M/mm3 (3.80-5.20); White Blood Cell Count 9.47 K/mm3 (4.00-11.30)
[2021-08-21 16:36] LABS: Bun/Creatinine Ratio 4.7 (12.0-20.0); Calcium, Blood 9.1 mg/dL (8.5-10.1); Creatinine, Blood 4.06 mg/dL (0.40-1.00)
== END ==
LOC: EDSTATUS 10:26 → LAB UVN 15:25
PROVIDERS: Internal Medicine
DX: N39.0 Urinary tract infection, site not specified (principal); R78.81 Bacteremia
CPT/HCPCS: 80048; 85027